=== PATIENT | female | born 1940 | race Caucasian/White ===

== ENCOUNTER 2016-04-07 18:59 | Observation (INO) | payer MEDICARE, OTHER ==
--- NOTE | ~2016-04-07 | EHP ---
ER History and Physical [place] [id number] [facility] [place]. [address] NAME: ORIANA HALL : 41 STATUS : DIS Moira PAT#: [id number] AGE: 75 ADM/REG DATE : 04/07/16 MR#: [id number] REPORT SERV DATE: 04/28/16 DICTATED BY: ISHA VELEZ DATE: 04/28/16 REPORT STATUS : Draft TRANSCRIBED BY: CHINO DATE: 04/28/16 ADDENDUM: PROCEDURE: Cardioversion. Ms. Ruiz remained in SVT in the emergency room with labile blood pressures and so she was prepared for cardioversion, through IV she was given 75 mg of propofol as well as 25 mg of fentanyl. After she had adequate sedation, she received 200 joules per synchronized cardioversion. She had some bradycardia surrounding the event, which she recovered from when she awakened from her sedation. The SVT was resolved, and Ms. Ruiz felt much better. There were no complications. The patient was monitored, and she was then admitted to Cardiology. CMR/MODL Isha Velez M.D. / [id number] CC: Yuko Valentin M.D.
--- NOTE | ~2016-04-07 | HP ---
History And Physical [place] [id number] [facility] [place]. [address] NAME: ORIANA VEGA : 41 STATUS : ADM Moira PAT#: [id number] AGE: 75 ADM/REG DATE : 04/07/16 MR#: [id number] REPORT SERV DATE: 04/08/16 DICTATED BY: DATE: REPORT STATUS : Draft TRANSCRIBED BY: MODL DATE: 04/08/16 DATE OF ADMISSION: 04/07/2016 CHIEF COMPLAINT/REASON FOR CONSULT/ADMISSION: Supraventricular tachycardia. HISTORY OF PRESENT ILLNESS: Ms Oriana Vega is a 75-year-old female, is known to my colleague Dr. Bishop, who generally follows her. The patient noticed elevated heart rates for two days. She also experienced nausea. She did not experience any chest pain or shortness of breath. The patient was found to be in supraventricular tachycardia in the emergency department with associated nausea and underwent DC cardioversion with return to sinus rhythm. The patient was noted to be hypokalemic with a potassium of 3.1 on admission. The patient was stabilized in the emergency department and declined discharge from the emergency department last night. She is feeling well this morning without nausea. PAST MEDICAL HISTORY: 1. History of myocardial infarction and prior PCI. 2. Peripheral vascular disease. 3. Mild aortic stenosis. 4. Occluded right carotid artery. 5. History of cerebrovascular accident. 6. Lip cancer status post surgery. 7. History of breast implants. 8. History of cataract surgery. SOCIAL HISTORY: The patient is a former smoker. She does not use alcohol. She does use four cups of coffee a day. FAMILY HISTORY: Noncontributory. ALLERGIES: 1. PENICILLIN. 2. SULFA. REVIEW OF SYSTEMS: Significant for nausea, but is otherwise negative except for as dictated in the HPI. PHYSICAL EXAMINATION: VITAL SIGNS: Blood pressure ranged between 97 to 127 over 53 to 65, pulse 60 to 64, respirations 18, and oxygen saturation 92% on 2 L nasal cannula. GENERAL: Ms Oriana Vega is a well-groomed 75-year-old female. She is in no distress. Resting comfortably. She appears younger than her stated age. NECK: No jugular venous distention. No carotid bruits. HEART: Regular rate and rhythm. There is a 3/6 systolic murmur that is best appreciated over the right second intercostal space. LUNGS: Clear to auscultation in all silverio. ABDOMEN: Soft and nontender. There was no evidence of renal bruits. I could not palpate History And Physical [address] [place]. [address] NAME: ORIANA VEGA : 41 STATUS : ADM Moira PAT#: [id number] AGE: 75 ADM/REG DATE : 04/07/16 MR#: [id number] REPORT SERV DATE: 04/08/16 DICTATED BY: DATE: REPORT STATUS : Draft TRANSCRIBED BY: MODL DATE: 04/08/16 her aorta. EXTREMITIES: Warm and well-perfused. There is no pitting edema. LABORATORY DATA: Chest x-ray performed on admission for palpitations demonstrated a stable nodule over the mid to right upper portion of her chest, and mild left bibasilar atelectasis. This is similar to a previous chest x-ray performed on 03/30/2016. It measured 1.6 x 1.7 mm. Troponin ranged between 0.05 and 0.06. An EKG performed on admission demonstrated supraventricular tachycardia with a heart rate of 167 beats per minute. There were ST-segment changes noted. Subsequent EKGs demonstrated normal sinus rhythm at 64 beats per minute. There were T-wave inversions in the inferior and the anterolateral leads noted. Potassium on admission was 3.1, is improved at 3.8, magnesium 2, BUN 21, and creatinine 0.87. Hemoglobin 14.1, hematocrit 41, and platelet count is 266. IMPRESSION, REPORT, AND PLAN: 1. Supraventricular tachycardia. 2. Hypokalemia. 3. Hypertension. 4. Coronary artery disease, status post PCI. 5. Mild aortic stenosis. 6. Peripheral vascular disease. 7. Upper right lung nodule. RECOMMENDATIONS: 1. We will arrange for CT scan of the chest to evaluate her lung nodule. 2. We will arrange outpatient followup with her primary care provider as previously scheduled. 3. She has scheduled followup with Dr. Dutta on 04/21/2016 at 11 a.m. 4. We will arrange follow up with her primary wet inspector optical glass Dr. Bishop on 05/18/2016 at 0230 hours. It has been my pleasure to participate in the care of this patient. [facility]/MODL Sarah Kohli M.D. / [id number] CC: Yuko Valentin M.D. James Hoback Jr., M.D. Brian Negus, M.D.
[2016-04-07 18:27] LABS: BASOPHILS 0.3 %; BASOPHILS ABSOLUTE 0.04 10/3/uL (0.0-0.16); EOSINOPHILS 1.2 %; EOSINOPHILS ABSOLUTE 0.14 10/3/uL (0.0-0.53); IMMATURE GRANULOCYTES 0.2 %; IMMATURE GRANULOCYTES ABSOLUTE 0.02 10/3/uL (0.0-0.11); LYMPHOCYTES 26.4 %; LYMPHOCYTES ABSOLUTE 3.16 10/3/uL (0.67-4.30); MEAN CORPUSCULAR HEMOGLOB 31.8 pg (26.0-34.0); MEAN CORPUSCULAR VOLUME 88.6 fL (80-100); MEAN PLATELET VOLUME 10.4 fL (9.2-13.0); MONOCYTES 7.6 %; MONOCYTES ABSOLUTE 0.91 10/3/uL (0.21-1.20); NEUTROPHILS 64.3 %; NEUTROPHILS ABSOLUTE 7.69 10/3/uL (2.02-8.40); RBC DISTRIBUTION WIDTH 12.9 % (12.0-16.0)
[2016-04-07 18:28] LABS: HEMATOCRIT 49.5 % (36.0-48.0); HEMOGLOBIN 17.8 g/dL (12.0-16.0); MANUAL DIFF NO %; PLATELET COUNT 322 10/3/uL (150-400); RED CELL COUNT 5.59 10/6/uL (4.0-5.6)
[2016-04-07 18:43] LABS: BUN (BLOOD UREA NITROGEN) 21 MG/DL (6-23); CALCIUM, SERUM 9.5 MG/DL (8.5-10.4); CHLORIDE, SERUM 98 MMOL/L (96-112); CO2 (CARBON DIOXIDE) 27 MMOL/L (24-34); GFR AFRICAN AMERICAN 57 ML/MIN (>=60); GFR NON AFRICAN AMERICAN 49 ML/MIN (>=60); GLUCOSE, SERUM 104 MG/DL (60-99); POTASSIUM, SERUM 3.1 MMOL/L (3.5-5.3); SODIUM, SERUM 138 MMOL/L (135-148)
[2016-04-07 18:45] LABS: CHEST PAIN PROFILE TAT 0 Hrs 24 Mins; PARTIAL THROMBO TIME 24.4 SEC (22.5-37.2); TROPONIN I 0.06 NG/ML (<0.05)
[~2016-04-07 18:59] MED LIST: CLARIT10 PO; COZAAR100 MG PO; ESTRACE VAGIN42.5 GM V; HYDROCHLOROT25 MG PO; K250 PO; KDUR20 PO; KLOR-CON M2020 MEQ PO; L10 PO; LIPITOR40 PO; LOP100 PO; NITROSTAT0.4 MG SL; NORV5 PO; PLAVIX PO; ZOCOR20 PO; ZOFRAN4 PO
[2016-04-07] MEDS ORDERED: FLONASE NAS (19:15)
[2016-04-07] MEDS ORDERED: K250 PO (19:15)
[2016-04-07] MEDS ORDERED: ATV.5 PO (19:15)
[2016-04-08 00:44] LABS: POTASSIUM, SERUM 3.7 MMOL/L (3.5-5.3)
[2016-04-08 00:49] LABS: TROPONIN I 0.06 NG/ML (<0.05)
[2016-04-08 04:22] LABS: BASOPHILS 0.3 %; BASOPHILS ABSOLUTE 0.04 10/3/uL (0.0-0.16); EOSINOPHILS 2.5 %; EOSINOPHILS ABSOLUTE 0.29 10/3/uL (0.0-0.53); IMMATURE GRANULOCYTES 0.3 %; IMMATURE GRANULOCYTES ABSOLUTE 0.03 10/3/uL (0.0-0.11); LYMPHOCYTES 28.5 %; LYMPHOCYTES ABSOLUTE 3.31 10/3/uL (0.67-4.30); MEAN CORPUS HGB CONC 34.4 g/dL (32.0-36.0); MEAN CORPUSCULAR HEMOGLOB 30.9 pg (26.0-34.0); MEAN CORPUSCULAR VOLUME 89.9 fL (80-100); MEAN PLATELET VOLUME 10.3 fL (9.2-13.0); MONOCYTES 7.1 %; MONOCYTES ABSOLUTE 0.83 10/3/uL (0.21-1.20); NEUTROPHILS 61.3 %; NEUTROPHILS ABSOLUTE 7.13 10/3/uL (2.02-8.40); PLATELET COUNT 266 10/3/uL (150-400); RBC DISTRIBUTION WIDTH 13.1 % (12.0-16.0); RED CELL COUNT 4.56 10/6/uL (4.0-5.6); WHITE BLOOD CELLS 11.6 10/3/uL (4.5-10.5)
[2016-04-08 04:24] LABS: HEMOGLOBIN 14.1 g/dL (12.0-16.0); MANUAL DIFF NO %
[2016-04-08 04:40] LABS: A/G RATIO 0.9 (0.7-1.9); ALBUMIN 2.9 G/DL (3.5-5.0); ALKALINE PHOSPHATASE 44 U/L (45-117); BUN (BLOOD UREA NITROGEN) 21 MG/DL (6-23); CHLORIDE, SERUM 106 MMOL/L (96-112); CO2 (CARBON DIOXIDE) 26 MMOL/L (24-34); CREATININE 0.87 MG/DL (0.55-1.02); GFR AFRICAN AMERICAN 76 ML/MIN (>=60); GFR NON AFRICAN AMERICAN 66 ML/MIN (>=60); GLOBULIN 3.4 G/DL (2.5-4.1); GLUCOSE, SERUM 97 MG/DL (60-99); POTASSIUM, SERUM 3.8 MMOL/L (3.5-5.3); SGOT(AST) 15 U/L (5-40); SGPT(ALT) 19 U/L (5-65); SODIUM, SERUM 141 MMOL/L (135-148); TOTAL PROTEIN 6.3 G/DL (6.0-8.5)
[2016-04-08 04:41] LABS: CALCIUM, SERUM 8.4 MG/DL (8.5-10.4); TOTAL BILIRUBIN 0.2 MG/DL (0-1.2)
[2016-04-08 04:42] LABS: TROPONIN I 0.05 NG/ML (<0.05)
[2016-05-14] MEDS ORDERED: PRILOSEC40 MG PO (14:50)
== END 2016-04-08 14:09 | disposition home or self-care (01) ==
LOC: ER 18:59 → 5NO 21:59
PROVIDERS: Specialist
PROC: 5A2204Z Restoration of Cardiac Rhythm, Single (ICD-10-PCS; principal; 2016-04-07)
DX: I47.1 Supraventricular tachycardia (principal); I25.2 Old myocardial infarction; I25.10 Atherosclerotic heart disease of native coronary artery without angina pectoris; L40.9 Psoriasis, unspecified; I10 Essential (primary) hypertension; I35.0 Nonrheumatic aortic (valve) stenosis; M19.90 Unspecified osteoarthritis, unspecified site; I73.9 Peripheral vascular disease, unspecified; Z87.891 Personal history of nicotine dependence; Z88.0 Allergy status to penicillin; Z88.2 Allergy status to sulfonamides; Z79.899 Other long term (current) drug therapy; Z79.02 Long term (current) use of antithrombotics/antiplatelets; E78.2 Mixed hyperlipidemia; Z98.890 Other specified postprocedural states
CPT/HCPCS: 71010; 71250; 80048; 80053; 83735; 83880; 84132; 84484; 85025; 85610; 85730; 93005; 96374; 96375; 99291; A9270-GY; G0378; J0153; J1800; J2405; J3010

== ENCOUNTER 2016-05-21 09:23 | Inpatient (IN) | payer OTHER ==
--- NOTE | ~2016-05-21 | DS ---
Discharge Summary [facility] [address] [facility] [place]. [address] NAME: ORIANA HALL : 41 STATUS : DIS IN PAT#: [id number] AGE: 75 ADM/REG DATE : 05/21/16 MR#: [id number] REPORT SERV DATE: 05/24/16 DICTATED BY: MIGUEL TSANG DATE: 05/23/16 REPORT STATUS : Draft TRANSCRIBED BY: CHINO DATE: 05/23/16 ADMISSION DATE: 05/21/2016 DISCHARGE DATE: 05/22/2016 The patient was discharged earlier than expected date due to unexpected early recovery. CONDITION ON DISCHARGE: Stable. DISPOSITION: Discharged to home. 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 DIAGNOSES ON DISCHARGE: 1. Hypoxemia secondary to chronic obstructive pulmonary disease and tobacco abuse - the patient will need supplemental oxygen and she is being sent home on 2 L of oxygen per nasal cannula for continuous use. 2. Chest pain post bronchoscopy - resolved. 3. Atypical chest pain and nonspecific elevation in troponin I which has resolved and is not related to acute coronary syndrome at this time. The patient has been evaluated by Cardiology and this has been deemed atypical and not related to any acute coronary syndrome right now. 4. Chronic diagnoses in this patient include chronic obstructive pulmonary disease. 5. Right upper lobe lung nodule for which the patient had to undergo bronchoscopy and biopsy this time and preliminary biopsy results have come back positive for adenocarcinoma for which the patient will need resection. The patient has been evaluated by Pulmonology and appointments have been made with Oncology and also CT Surgery in the near future, so this can be taken care of. Morro Otto, the physician pediatric physical therapy assistant/nurse practitioner, Pulmonology has evaluated the patient and helped out with scheduling follow up appointments for this patient. BRIEF HOSPITAL COURSE: The patient is a pleasant 75-year-old female, who was admitted directly as a direct admit after she developed some chest pain and hypoxemia after bronchoscopy. The patient was admitted with supplemental oxygen and given symptomatic and supportive care, and her troponin I was followed serially. Her troponin I came down eventually and her chest pain also completely resolved. She was evaluated by Cardiology and it was deemed that her chest pain was atypical and not related to acute coronary syndrome at this time. The patient is a known smoker and has COPD and now has developed hypoxemia probably secondary to COPD. Hence, the patient is being sent home on home oxygen at 2 L/minute per nasal cannula. The patient's right upper lobe lung nodule biopsy after bronchoscopy has come back preliminarily positive for adenocarcinoma. The patient will need a resection of this in the near future and arrangements for this have already been made. The patient Discharge Summary [place] [address] [place]. [address] NAME: ORIANA HALL : 41 STATUS : DIS IN PAT#: [id number] AGE: 75 ADM/REG DATE : 05/21/16 MR#: [id number] REPORT SERV DATE: 05/24/16 DICTATED BY: MIGUEL TSANG DATE: 05/23/16 REPORT STATUS : Draft TRANSCRIBED BY: CHINO DATE: 05/23/16 states that she feels a lot better. Her chest pain has resolved and she wishes to go home on 05/22/2016 on home oxygen and this will be accomplished. The most recent labs that I have on this patient include the following. The patient's CBC on the day of discharge is completely normal. The patient's comprehensive metabolic profile on the day of discharge is also completely normal with normal electrolytes, normal BUN and creatinine, albumin is 2.8 which is slightly lower. Lipase is normal. CPK is normal. CK-MB is normal. Troponin I has come down to near normal at 0.05 from being elevated at 0.08. LFTs are completely normal. Her portable chest x-ray shows decreased lung volumes with right basilar atelectasis. However, otherwise no other acute cardiopulmonary disease. Her ABGs on 05/22/2016 shows pH of 7.4, PO2 of 73, pCO2 of 40, and oxygen saturation 94.8 on 2 L of oxygen. Hence, the patient is being sent home on supplemental oxygen. Her procalcitonin has come back, less than 0.05, suggesting that she has no infection or pneumonia at this time. Consults obtained during this hospitalization include Pulmonary and Cardiology consult. Her brain natriuretic peptide was slightly elevated at 316.6 at this time. However, we do not believe that she is in any florid heart failure now. HOME MEDICATIONS: That she is being sent home on include the followin. Amlodipine 5 mg p.o. b.i.d. 2. Lipitor 40 mg at bedtime. 3. Plavix 75 mg p.o. at bedtime. 4. Lopressor 50 mg p.o. b.i.d. 5. Potassium 20 mEq once a day. 6. Claritin 10 mg once a day. 7. Ativan 0.5 mg p.o. once a day as needed for anxiety. 8. Prilosec 40 mg once a day. 9. Percocet 5/325 one p.o. t.i.d. p.r.n. for chest pain. 10.Spiriva Respimat two puffs once a day. 11.ProAir HFA two puffs every four hours p.r.n. The patient also will continue to take Nitrostat 0.4 mg sublingual tablets p.r.n. for chest pain as directed. All these essentially are her home medications which have all been resumed. Hence, the patient is being sent home in stable condition with advice to follow up with all the above physicians, and I have spent about 40 minutes in coordinating discharge care of this patient including [id number] encounter and summarizing this discharge. TRE/CHINO Miguel Tsang M.D. / [id number] Discharge Summary [address] [address] NAME: ORIANA HALL : 41 STATUS : DIS IN PAT#: [id number] AGE: 75 ADM/REG DATE : 05/21/16 MR#: [id number] REPORT SERV DATE: 05/24/16 DICTATED BY: MIGUEL TSANG DATE: 05/23/16 REPORT STATUS : Draft TRANSCRIBED BY: MODL DATE: 05/23/16 CC: Yuko Canela M.D.
--- NOTE | ~2016-05-21 | CN ---
Consultation Report [facility] [address] [place]. [address] NAME: ORIANA HALL : 41 STATUS : ADM IN PAT#: [id number] AGE: 75 ADM/REG DATE : 05/21/16 MR#: [id number] REPORT SERV DATE: 05/22/16 DICTATED BY: SOURAV KAPADIA DATE: 05/21/16 REPORT STATUS : Draft TRANSCRIBED BY: MODSammy DATE: 05/21/16 CARDIOLOGY CONSULTATION DATE OF CONSULTATION: INDICATION: Chest pain, elevated troponins. HISTORY: The patient is a 75-year-old white female, usually followed by Dr. Bishop with a moderately complex cardiac history. She had undergone a bronchoscopy by Dr. Devi for evaluation of a lung mass, pathology pending. Prior to the procedure, she was taken off her Plavix for several days. Upon awakening, she noted some substernal chest discomfort. Laboratory studies showed a troponin of 0.07. We are asked to evaluate her. There are no acute changes on her electrocardiogram. Presently, she is asymptomatic. CURRENT HOME MEDICATIONS: Amlodipine 5 b.i.d., atorvastatin 40 a day, cephalexin 250 at h.s., clopidogrel 75 at h.s. presently discontinued, loratadine 10 per day, lorazepam 0.5 p.r.n., metoprolol tartrate 50 b.i.d., nitroglycerin 0.4 p.r.n., omeprazole 40 a day, potassium 20 q.a.m. ALLERGIES OR INTOLERANCES: Sulfa-containing drugs, penicillin G, and promethazine. SOCIAL HISTORY: The patient is an ex cigarette smoker; however, has a fairly heavy previous tobacco use. Negative for alcohol use. She drinks four caffeinated beverages per day. FAMILY HISTORY: Negative for coronary artery disease at young age. PAST MEDICAL HISTORY/REVIEW OF SYSTEMS: She has had angioplasties in 1996 and 1997. She has had previous non-Q-wave SD. She has a history of hypertension and dyslipidemia. She has peripheral vascular disease and has had previous intervention by Dr. Dutta. She has nonrheumatic aortic valve stenosis classified as moderate. Her recent echocardiogram showed a mean gradient of 21 mmHg with a calculated NARCISO of 0.86 centimeter squared. She has chronic back discomfort. PHYSICAL EXAMINATION: GENERAL: A 75-year-old white female. VITAL SIGNS: Blood pressure 120/62, pulse 70 and regular, respirations 18. SKIN: No xanthelasmas. HEENT: She is normocephalic. There is no pallor. Sclerae are white. There are nasal cannulas in place. NECK: There are bilateral transmitted bruits in the carotids. JVD is not elevated. CHEST: There are sparse crackles at the right base. There is moderate kyphosis. CARDIAC: S1 normal. S2 is physiologic. There is a 2/6 systolic ejection murmur transmitted Consultation Report [place] [id number] [place]. [address] NAME: ORIANA HALL : 41 STATUS : ADM IN [facility]#: [id number] AGE: 75 ADM/REG DATE : 05/21/16 MR#: [id number] REPORT SERV DATE: 05/22/16 DICTATED BY: SOURAV KAPADIA DATE: 05/21/16 REPORT STATUS : Draft TRANSCRIBED BY: CHINO DATE: 05/21/16 to the base. ABDOMEN: Soft. EXTREMITIES: Without edema. LABORATORY DATA: Troponin as mentioned is 0.07. CPK 39. White count 9.3, hemoglobin 14.3, BUN 9, creatinine 0.74. IMPRESSION: Somewhat atypical chest discomfort with minimal troponin elevation. Doubt acute coronary syndrome. Agree with monitoring enzymes. We will continue to follow with you. MAINOR/CHINO Sourav Kapadia M.D. / [id number] CC: Yuko Canela M.D. [facility]
--- NOTE | ~2016-05-21 | CN ---
Consultation Report [facility] [address] [place]. [address] NAME: ORIANA VEGA : 41 STATUS : ADM IN PAT#: [id number] AGE: 75 ADM/REG DATE : 05/21/16 MR#: [id number] REPORT SERV DATE: 05/21/16 DICTATED BY: OZZIE NUNEZ DATE: 05/21/16 REPORT STATUS : Draft TRANSCRIBED BY: MODL DATE: 05/21/16 CONSULTATION DATE OF CONSULTATION: 05/21/[address] Sarah Kohli: Thank you for requesting my opinion regarding evaluation and management of Ms. Oriana Vega's right upper lobe lung nodule. Ms. Vega is a pleasant 75-year-old female with a significant past medical history of prior myocardial infarction status post PCI, peripheral vascular disease, mild aortic stenosis, occluded right carotid artery, and history of cerebrovascular accident, history of lip cancer status post surgery, and bilateral breast implantation, who presents to [facility] for formal evaluation of an 18 mm spiculated right upper lobe lung nodule. Ms. Vega states that she had no significant shortness of breath at baseline, but had a history of rapid heart beats and recent nausea and was evaluated for supraventricular tachycardia and underwent DC cardioversion with return to sinus rhythm. The patient underwent a chest x-ray at that time, that demonstrated a nodule over the mid to the right upper portion of the lung and subsequent CT scan of the chest on 04/08/2016, demonstrated a spiculated lung nodule in the right upper lobe likely primary lung cancer. I circumscribed left upper lobe lung nodule which is nonspecific, linear atelectasis and/or fibrosis at the bases of both lungs, left greater than right, minimal pericardial thickening and fluid, gastric atherosclerosis, and coronary atherosclerosis and hiatal hernia. The patient states that she has typical exertional shortness of breath well localized to the chest, nonradiating with no significant alleviating or exacerbating factors. PAST MEDICAL HISTORY: 1. Myocardial infarction status post PCI. 2. PVD. 3. Mild aortic stenosis. 4. Occluded right carotid artery. 5. History of CVA. 6. Lip cancer, status post surgery. PAST SURGICAL HISTORY: 1. Breast implantation. 2. Cataract surgery. 3. As above. SOCIAL HISTORY: The patient is a former smoker. She denies any significant alcohol or illicit drug abuse. FAMILY HISTORY: Noncontributory. Consultation Report [address] [place]. [address] NAME: ORIANA VEGA : 41 STATUS : ADM IN PAT#: [id number] AGE: 75 ADM/REG DATE : 05/21/16 MR#: [id number] REPORT SERV DATE: 05/21/16 DICTATED BY: OZZIE NUNEZ DATE: 05/21/16 REPORT STATUS : Draft TRANSCRIBED BY: CHINO DATE: 05/21/16 ALLERGIES: PENICILLIN AND SULFA. HOME MEDICATIONS: Reviewed and located in the paper chart. REVIEW OF SYSTEMS: A 14-point review of systems was completed. Pertinent positives and negatives are listed above. PHYSICAL EXAMINATION: VITAL SIGNS: Reviewed and located in the paper chart. GENERAL: No acute distress. Able to communicate in full paragraphs at a time. HEENT: Normocephalic and atraumatic. Pupils are equal, round, and reactive to light and accommodation. Posterior oropharynx is clear. NECK: No JVD. No LAD. Trachea midline. CARDIOVASCULAR: Regular rate and rhythm. S1 and S2 present. 3/6 systolic murmur. LUNGS: Clear to auscultation bilaterally. ABDOMEN: Nontender, nondistended. Soft. Positive bowel sounds. EXTREMITIES: No clubbing, cyanosis, or edema. SKIN: No new rashes, lesions, or ulcers. PSYCHIATRIC: Alert and oriented x3. Appropriate mood and affect. Appropriate insight and judgment. NEUROLOGICAL: 5/5 strength in upper and lower extremities. Cranial nerves 2 through 12 intact. Gait not tested. DTRs not performed. DIAGNOSTIC STUDIES: 1. Chest x-ray demonstrated a stable nodule in the right upper lobe portion of the lung. 2. CT scan of the chest on 04/08/2016, was personally reviewed by me and I agree with the following interpretation, spiculated right upper lobe 18 mm lung nodule. 3. Indeterminate left upper lobe lung nodule, which is nonspecific, which may represent metastases. 4. Linear atelectasis and/or fibrosis. 5. Minimal pericardial thickening and fluid, gastric atherosclerosis including coronary arteries. 6. Hiatal hernia. 7. Bilateral breast implantation. ASSESSMENT AND PLAN: Ms. Vega is an extremely pleasant 75-year-old female with a significant past medical history of tobacco abuse, coronary artery disease status post PCI, and supraventricular tachycardia status post recent DC cardioversion, who presents to [facility] for formal evaluation of a right upper lobe spiculated lung nodule. The clinical and radiographic presentation is most concerning for primary bronchogenic carcinoma. Other alternate etiologies include an inflammatory process. According to the solitary [facility] pulmonary nodule calculator, the pretest probability of malignancy is 91%. Consultation Report [facility] [address] [place]. [address] NAME: ORIANA VEGA : 41 STATUS : ADM IN PAT#: [id number] AGE: 75 ADM/REG DATE : 05/21/16 MR#: [id number] REPORT SERV DATE: 05/21/16 DICTATED BY: OZZIE NUNEZ DATE: 05/21/16 REPORT STATUS : Draft TRANSCRIBED BY: CHINO DATE: 05/21/16 We discussed in detail potential options including CT-guided needle biopsy, thoracic surgical biopsy, EBUS and navigation bronchoscopy. After careful discussion of the risks, benefits, and alternatives to each of these procedures, and we agreed to proceed with EBUS and navigation bronchoscopy. The patient is aware that the procedure is associated with potential life-threatening risks, including lung collapse, respiratory failure, and even . RECOMMENDATIONS: A summary of my recommendations are as follows: 1. Proceed with EBUS and navigation bronchoscopy. 2. Further recommendations pending postoperative results. Thank you for allowing me to participate in Ms. Vega's care. Sincerely, HELEN/CHINO Ozzie Nunez M.D. / [id number] CC: Yuko Canela M.D.
--- NOTE | ~2016-05-21 | EGD ---
EGD REPORT [facility] [address] [id number] NAME: ORIANA MUÑOZ : 42 STATUS : REG [facility]#: [id number] AGE: 75 ADM/REG DATE : 05/21/16 MR#: [id number] REPORT SERV DATE: 05/21/16 DICTATED BY: SUKHI NUNEZ DATE: 05/21/16 REPORT STATUS : Draft TRANSCRIBED BY: [facility] DATE: 05/21/16 Pulmonology Patient Name: Oriana Muñoz Procedure Date: 05/21/2016 11:23 AM Date of : 1940 Attending MD: YOSELYN NUNEZ MD Procedure Date No Time: 05/21/2016 Procedure: EBUS/NORMA BRONCHOSCOPY Indications: RUL lung nodule, tobacco abuse Providers: YOSELYN NUNEZ MD Referring MD: Sarah Kohli Medicines: Lidocaine 2% 20 mL Complications: No immediate complications Procedure: - ASA Grade Assessment: III - A patient with severe systemic disease. - A History and Physical has been performed. Patient meds and allergies have been reviewed. The risks and benefits of the procedure and the sedation options and risks were discussed with the patient. All questions were answered and informed consent was obtained. Patient identification and proposed procedure were verified prior to the procedure by the physician and the nurse in the pre-procedure area in the procedure room. Mental Status Examination: alert and oriented. Respiratory Examination: clear to auscultation. CV Examination: normal and RRR, no murmurs, no S3 or S4. ASA Grade Assessment: IV - A patient with severe systemic disease that is a constant threat to life. After reviewing the risks and benefits, the patient was deemed in satisfactory condition to undergo the procedure. The anesthesia plan was to use general anesthesia. Immediately prior to administration of medications, the patient was re-assessed for adequacy to receive sedatives. The heart rate, respiratory rate, oxygen saturations, blood pressure, adequacy of pulmonary ventilation, and response to care were monitored throughout the procedure. The physical status of the patient was re-assessed after the procedure. the BF [id number] was introduced through the mouth, via the endotracheal tube (the patient was intubated for the procedure) and advanced to the tracheobronchial tree. the Bronchoscope was introduced through the mouth, via the endotracheal tube (the patient was intubated for the procedure) and advanced to the tracheobronchial tree. Findings: EGD REPORT [address] [place]. [address] NAME: ORIANA MUÑOZ : 42 STATUS : REG [facility] PAT#: [id number] AGE: 75 ADM/REG DATE : 05/21/16 MR#: [id number] REPORT SERV DATE: 05/21/16 DICTATED BY: SUKHI NUNEZ DATE: 05/21/16 REPORT STATUS : Draft TRANSCRIBED BY: [employer] [facility] DATE: 05/21/16 The endotracheal tube is in good position. The visualized portion of the trachea is of normal caliber. The gila is sharp. The tracheobronchial tree was examined to at least the first subsegmental level. Bronchial mucosa and anatomy are normal; there are no endobronchial lesions, and no secretions. EBUS TBNA of lymph node level 11L x 4 passes for cytology EBUS TBNA of lymph node level 4L x 4 passes for cytology EBUS TBNA of lymph node level 7 x 4 passes for cytology EBUS TBNA of lymph node level 4R x 4 passes for cytology EBUS TBNA of lymph node level 11R x 4 passes for cytology Using SuperDimension Edge catheter 180, peripheral probe EBUS 17s, and fluoroscopy, I performed the following biopsies: RUL lung nodule transbronchial needle aspirates x 4 passes for cytology RUL lung nodule transbronchial brush biopsy x 1 pass for cytology RUL lung nodule transbronchial forcep biopsies x 8 passes for histopathology Bronchoalveolar lavage was performed in the right upper lobe of the lung and sent for routine cytology. 180 mL of fluid were instilled. 30 mL were returned. The return was blood-tinged and cellular. 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 Recommendation: - Await test results. - Chest X-ray. - Complete pulmonary function tests. - PET scan. - MRI of the brain with and without contrast Attending Participation: I personally performed the entire procedure. YOSELYN NUNEZ MD 05/21/2016 2:43 PM This report has been signed electronically. Number of Addenda: 0 Note Initiated On: 05/21/2016 11:23 AM [address] [id number]
--- NOTE | ~2016-05-21 | HP ---
History And Physical [place] [id number] [facility] [place]. [address] NAME: ORIANA VEGA : 42 STATUS : ADM IN [facility]#: [id number] AGE: 75 ADM/REG DATE : 05/21/16 MR#: [id number] REPORT SERV DATE: 05/22/16 DICTATED BY: MIGUEL TSANG DATE: 05/21/16 REPORT STATUS : Draft TRANSCRIBED BY: CHINO DATE: 05/21/16 DATE OF ADMISSION: 05/21/2016 HISTORY OF PRESENT ILLNESS: Ms. Oriana Vega is a 75-year-old female patient, who is coming in as a direct admit from Dr. Devi. The patient underwent a bronchoscopy today for a lung nodule that is suspicious for malignancy and after the procedure developed chest pain and hypoxia and the reason for admission is chest pain, hypoxia, and mildly elevated troponin I. The patient arrived from bronchoscopy hold up to [address] [place] [address], and I examined the patient at bedside. At this time, the patient continues to have mild-to- moderate chest pain and she points actually to the left lateral area of her chest or flank area rather than the left side of the chest itself or precordium. She states that the pain is dull aching type and does request something for it. The patient also says that she did not have the chest pain until she underwent the bronchoscopy itself. Other than the pain, the patient has no other symptoms whatsoever right now. REVIEW OF SYSTEMS: Negative for headaches, blurry vision, trouble swallowing, shortness of breath, cough, fever, nausea, vomiting, abdominal pain, diarrhea, dysuria, hematuria, etc. The pain itself; according to the patient, she says that it was present in the anterior chest and was going all the way to the back but now has shifted completely to the left side of the chest and back of the left chest. PAST MEDICAL HISTORY: Significant for COPD, recently diagnosed lung nodule suspicious for malignancy for which patient underwent bronchoscopy today by Dr. Devi; coronary artery disease, status post stenting. The patient's vehicle refinisher is Dr. Bishop. There is also a history of questionable SVT in the past. The patient also has a history of lip cancer for which she has had part of her upper lip resected. Other than these, there is no other significant past medical history. SOCIAL HISTORY: The patient smokes about half a pack a day now. She denies any significant alcohol use, denies any illicit drug use. The patient is and has a daughter and a granddaughter. FAMILY HISTORY: Positive for heart disease in both parents. ALLERGIES: THE PATIENT IS ALLERGIC TO SULFA, PROMETHAZINE, AND ALSO PENICILLIN G. HOME MEDICATIONS: Her home medications include amlodipine 5 mg p.o. b.i.d.; Lipitor 40 mg p.o. at bedtime; Clopidogrel 75 mg p.o. at bedtime; Lopressor 150 mg twice a day; potassium chloride 20 mEq once a day; nitroglycerin 0.4 mg sublingually p.r.n. for chest pain; Claritin 10 mg once a day; Ativan 0.5 mg p.o. daily as needed for anxiety; Prilosec 40 mg every day; and the patient is on Keflex 250 mg p.o. at bedtime for prevention of UTI. History And Physical [address] 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 PHYSICAL EXAMINATION: GENERAL: On examination, the patient is alert, oriented, and does not seem to be in any acute distress at this time. She does complain of moderate chest pain and requests something for the pain relief. VITAL SIGNS: Show that her blood pressure is 126/59, pulse is 79 per minute, and oxygen saturation is 92% on 2 L of oxygen per nasal cannula. The patient is afebrile. HEENT: Skin and mucous membranes appear very dry at this time. Unremarkable. There is no facial droop. The patient has had part of her upper lip resected for the squamous cell cancer as mentioned. NECK: On examination of the neck, there is no JVD, thyromegaly, or lymphadenopathy. CARDIOVASCULAR SYSTEM: S1, S2 is appreciated. Soft systolic murmur is noted. RESPIRATORY SYSTEM: Limited lung expansion and poor air entry noted at the lung bases. I could hear a few crackles on the right side of the lung base. Otherwise, lungs are clear. ABDOMEN: Soft, nontender, nondistended. Bowel sounds appreciated. No organomegaly noted. No masses noted. EXTREMITIES: There is no pedal edema. Pedal pulses are well felt. NEUROLOGICAL: No deficits. MUSCULOSKELETAL: No swelling, warmth, or redness in any of the major joints. PSYCHIATRIC EXAM: Normal as of now but the patient does have history of mild generalized anxiety. LABORATORY DATA: Labs that I have on this patient include a CBC that shows WBC count of 9.3, essentially all normal. INR 1.1. Electrolyte profile is all within normal including BUN and creatinine. Portable chest x-ray that was done today shows no pneumothorax following the bronchoscopic procedure. Bronchoscopy itself; the patient underwent bronchoscopy for right upper lobe lung nodule and the report is suspicious for malignancy at this time. The patient's CPK and CK-MB are normal but troponin I is mildly elevated at 0.07. ASSESSMENT: 1. Chest pain, mild hypoxia and mildly elevated troponin post bronchoscopy - admit the patient and give her supplemental oxygen, IV fluids as she appears very dry at this time. I will give the patient pain relief and give her symptomatic and supportive care at this time. Will follow serial troponins at this time. However, as the patient is requesting her vehicle refinisher, Dr. Bishop's consult, we will go ahead and consult Dr. Bishop or covering vehicle refinisher at this time per patient's request. 2. Dr. Devi, our covering sales product manager, will continue to see her as of tomorrow. I will follow the patient myself. History And Physical [address] [place]. [address] NAME: ORIANA VEGA : 42 STATUS : ADM IN [facility]#: [id number] AGE: 75 ADM/REG DATE : 05/21/16 MR#: [id number] REPORT SERV DATE: 05/22/16 DICTATED BY: MIGUEL TSANG DATE: 05/21/16 REPORT STATUS : Draft TRANSCRIBED BY: [facility]INO DATE: 05/21/16 RRA/MODL Miguel Tsang M.D. / [id number] CC: Yuko Canela M.D.
[~2016-05-21 09:23] MED LIST changes: +ATV.5 PO; +FLONASE NAS; +PRILOSEC40 MG PO
[2016-05-21 09:52] LABS: BASOPHILS 0.3 %; BASOPHILS ABSOLUTE 0.03 10/3/uL (0.0-0.16); EOSINOPHILS 6.4 %; EOSINOPHILS ABSOLUTE 0.59 10/3/uL (0.0-0.53); HEMATOCRIT 42.4 % (36.0-48.0); HEMOGLOBIN 14.3 g/dL (12.0-16.0); IMMATURE GRANULOCYTES 0.2 %; IMMATURE GRANULOCYTES ABSOLUTE 0.02 10/3/uL (0.0-0.11); LYMPHOCYTES 23.6 %; LYMPHOCYTES ABSOLUTE 2.19 10/3/uL (0.67-4.30); MEAN CORPUS HGB CONC 33.7 g/dL (32.0-36.0); MEAN CORPUSCULAR HEMOGLOB 30.1 pg (26.0-34.0); MEAN CORPUSCULAR VOLUME 89.3 fL (80-100); MEAN PLATELET VOLUME 9.9 fL (9.2-13.0); MONOCYTES 7.2 %; MONOCYTES ABSOLUTE 0.67 10/3/uL (0.21-1.20); NEUTROPHILS 62.3 %; NEUTROPHILS ABSOLUTE 5.77 10/3/uL (2.02-8.40); PLATELET COUNT 233 10/3/uL (150-400); RBC DISTRIBUTION WIDTH 13.9 % (12.0-16.0); RED CELL COUNT 4.75 10/6/uL (4.0-5.6); WHITE BLOOD CELLS 9.3 10/3/uL (4.5-10.5)
[2016-05-21 09:53] LABS: MANUAL DIFF NO %
[2016-05-21 09:57] LABS: INTERNATIONAL NORMAL RATI 1.1 UNITS (-); PARTIAL THROMBO TIME 26.4 SEC (22.5-37.2); PROTIME (NOT ORD) 14.2 SEC (12.0-14.5)
[2016-05-21 10:08] LABS: BUN (BLOOD UREA NITROGEN) 9 MG/DL (6-23); CALCIUM, SERUM 9.2 MG/DL (8.5-10.4); CHLORIDE, SERUM 106 MMOL/L (96-112); CO2 (CARBON DIOXIDE) 27 MMOL/L (24-34); CREATININE 0.74 MG/DL (0.55-1.02); GFR AFRICAN AMERICAN 92 ML/MIN (>=60); GFR NON AFRICAN AMERICAN 80 ML/MIN (>=60); GLUCOSE, SERUM 105 MG/DL (60-99); POTASSIUM, SERUM 3.7 MMOL/L (3.5-5.3); SODIUM, SERUM 142 MMOL/L (135-148)
[2016-05-21 16:44] LABS: CPK 39 U/L (0-200)
[2016-05-21 16:45] LABS: CK-MB 1.4 NG/ML
[2016-05-21 16:56] LABS: TROPONIN I 0.07 NG/ML (<0.05)
[2016-05-21 20:28] LABS: TROPONIN I 0.08 NG/ML (<0.05)
[2016-05-21 20:48] LABS: PROCALCITONIN <0.05 ng/mL (<0.5)
[2016-05-22 04:32] LABS: ALLENS TEST Pos; DEVICE NC; HCO3 (ACTUAL BICARBONATE) 25.5 MEQ/L (23-27); HEMOBLOGIN CONTENT 12.9 G/DL (12-16); INSTRUMENT SERIAL # 35151; METHEMOGLOBIN 0.6 % (0-3); O2 CONTENT 17.1 VOL% (18-24); OPERATOR ID 31061; PCO2 (CO2 TENSION) 40 MMHG (35-45); PO2 (O2 TENSION) 73 MMHG (79-93); SAMPLE Arterial; pH 7.42 (7.37-7.43)
[2016-05-22 05:12] LABS: BASOPHILS 0.1 %; BASOPHILS ABSOLUTE 0.01 10/3/uL (0.0-0.16); EOSINOPHILS 0 %; HEMOGLOBIN 12.3 g/dL (12.0-16.0); IMMATURE GRANULOCYTES 0.1 %; IMMATURE GRANULOCYTES ABSOLUTE 0.01 10/3/uL (0.0-0.11); LYMPHOCYTES 12.4 %; MEAN CORPUS HGB CONC 33.4 g/dL (32.0-36.0); MEAN CORPUSCULAR HEMOGLOB 30.1 pg (26.0-34.0); MEAN PLATELET VOLUME 10.4 fL (9.2-13.0); MONOCYTES 3.7 %; NEUTROPHILS 83.7 %; NEUTROPHILS ABSOLUTE 6.72 10/3/uL (2.02-8.40); PLATELET COUNT 207 10/3/uL (150-400); RBC DISTRIBUTION WIDTH 13.5 % (12.0-16.0); RED CELL COUNT 4.09 10/6/uL (4.0-5.6)
[2016-05-22 05:15] LABS: HEMATOCRIT 36.8 % (36.0-48.0); MANUAL DIFF NO %
[2016-05-22 05:45] LABS: ALKALINE PHOSPHATASE 71 U/L (45-117); BUN (BLOOD UREA NITROGEN) 10 MG/DL (6-23); CALCIUM, SERUM 8.5 MG/DL (8.5-10.4); CHLORIDE, SERUM 102 MMOL/L (96-112); CO2 (CARBON DIOXIDE) 28 MMOL/L (24-34); CPK 34 U/L (0-200); CREATININE 0.62 MG/DL (0.55-1.02); GFR AFRICAN AMERICAN 103 ML/MIN (>=60); GFR NON AFRICAN AMERICAN 89 ML/MIN (>=60); GLUCOSE, SERUM 122 MG/DL (60-99); POTASSIUM, SERUM 3.9 MMOL/L (3.5-5.3); SGOT(AST) 16 U/L (5-40); SGPT(ALT) 21 U/L (5-65); SODIUM, SERUM 139 MMOL/L (135-148); TOTAL BILIRUBIN 0.5 MG/DL (0-1.2)
[2016-05-22 05:50] LABS: A/G RATIO 0.9 (0.7-1.9); ALBUMIN 2.8 G/DL (3.5-5.0); CK-MB 1.3 NG/ML; GLOBULIN 3.1 G/DL (2.5-4.1); TOTAL PROTEIN 5.9 G/DL (6.0-8.5); TROPONIN I 0.05 NG/ML (<0.05)
[2016-05-22 09:17] LABS: CK-MB 1.3 NG/ML; CPK 37 U/L (0-200)
[2016-05-22] MEDS ORDERED: PCET PO (13:36)
[2016-05-22] MEDS ORDERED: SPIRIVA RESPIMAT INH (13:58)
[2016-05-22] MEDS ORDERED: PROAIR HFA INH (14:01)
== END 2016-05-22 15:39 | disposition home or self-care (01) | DRG 167 ==
LOC: DMU 09:23 → 6NO 17:51
PROVIDERS: Anesthesiology; Internal Medicine
PROC: 07B74ZX Excision of Thorax Lymphatic, Percutaneous Endoscopic Approach, Diagnostic (ICD-10-PCS; principal; 2016-05-21 11:30)
PROC: 0BBC8ZX Excision of Right Upper Lung Lobe, Via Natural or Artificial Opening Endoscopic, Diagnostic (ICD-10-PCS; 2016-05-21 11:30)
PROC: 0BBC8ZX Excision of Right Upper Lung Lobe, Via Natural or Artificial Opening Endoscopic, Diagnostic (ICD-10-PCS; 2016-05-21 11:30)
PROC: 0B948ZX Drainage of Right Upper Lobe Bronchus, Via Natural or Artificial Opening Endoscopic, Diagnostic (ICD-10-PCS; 2016-05-21 11:30)
DX: R09.02 Hypoxemia (principal); C34.11 Malignant neoplasm of upper lobe, right bronchus or lung; J44.9 Chronic obstructive pulmonary disease, unspecified; I65.21 Occlusion and stenosis of right carotid artery; R07.89 Other chest pain; I25.10 Atherosclerotic heart disease of native coronary artery without angina pectoris; F17.210 Nicotine dependence, cigarettes, uncomplicated; I25.2 Old myocardial infarction; I73.9 Peripheral vascular disease, unspecified; I35.0 Nonrheumatic aortic (valve) stenosis; Z95.5 Presence of coronary angioplasty implant and graft; Z86.73 Personal history of transient ischemic attack (TIA), and cerebral infarction without residual deficits; Z82.49 Family history of ischemic heart disease and other diseases of the circulatory system; Z79.02 Long term (current) use of antithrombotics/antiplatelets; Z85.828 Personal history of other malignant neoplasm of skin; Z88.0 Allergy status to penicillin; Z88.2 Allergy status to sulfonamides
CPT/HCPCS: 71010; 80048; 80053; 82550; 82553; 82805; 83690; 83880; 84145; 84484; 85025; 85610; 85730; 88112; 88172; 88173; 88305; 88333; 93005; 94640; A9270-GY; C1725; C1769; G0463; J2250; J2405; J2710; J3010

== ENCOUNTER 2016-05-25 06:44 | Inpatient (IN) | payer OTHER ==
--- NOTE | ~2016-05-25 | CN ---
Consultation Report [facility] [address] [place]. [address] NAME: ORIANA VEGA : 42 STATUS : ADM [facility] PAT#: [id number] AGE: 75 ADM/REG DATE : 05/25/16 MR#: [id number] REPORT SERV DATE: 05/25/16 DICTATED BY: AURA FIELD DATE: 05/25/16 REPORT STATUS : Draft TRANSCRIBED BY: MODL DATE: 05/25/16 ELECTROPHYSIOLOGY CONSULTATION DATE OF CONSULTATION: 05/25/2016 REASON: Symptomatic narrow complex tachycardia. HISTORY OF PRESENT ILLNESS: Ms. Vega is a pleasant 75-year-old woman, recently diagnosed with adeno CA possibly stage I. Staging is still being performed. She has been having problems with narrow complex tachycardias. Heart rate somewhat variable. This was thought to possibly be SVT, and she has not been treated with anything but metoprolol. She again comes in with a narrow complex tachycardia rate of approximately 160 beats per minute. She was treated with IV Cardizem, appear to have had converted to sinus rhythm. She was seen by Dr. Rizzo earlier, who had asked me to see her from electrophysiology standpoint due to the fact that she has had number of admissions with this narrow complex tachycardia in the last several weeks. PAST MEDICAL HISTORY: 1. Notable for a long-standing history of tobacco abuse and COPD. She is on oxygen at home. 2. Recent diagnosis of right upper lobe adeno CA. Staging is ongoing. 3. History of tachypalpitations and narrow complex tachycardia. 4. History of hypertension. 5. History of hyperlipidemia. HOME MEDICATIONS: Include albuterol, amlodipine, atorvastatin, Plavix, lorazepam, metoprolol 50 mg p.o. b.i.d., Prilosec, potassium, Spiriva. FAMILY HISTORY: Noncontributory. Negative for premature coronary artery disease. SOCIAL HISTORY: Notable for tobacco abuse. Negative alcohol. Negative illicit drug use. REVIEW OF SYSTEMS: As noted above. All other systems reviewed and negative. PHYSICAL EXAMINATION: VITAL SIGNS: Blood pressure is 136/72. The patient is now in a narrow complex tachycardia rate of approximately 160 beats per minute. Respirations of 18. GENERAL: Well developed, well nourished. HEENT: No icterus. Good dentition. NECK: Supple. No masses or thyromegaly. LUNGS: No wheezes. Decreased breath sounds equal bilaterally. COR: She has an irregularly irregular tachycardic rhythm. ABD: Soft, nondistended, nontender, no hepatosplenomegaly. Consultation Report [facility] [address] [place]. [address] NAME: ORIANA VEGA : 42 STATUS : ADM [facility] PAT#: [id number] AGE: 75 ADM/REG DATE : 05/25/16 MR#: [id number] REPORT SERV DATE: 05/25/16 DICTATED BY: AURA FIELD DATE: 05/25/16 REPORT STATUS : Draft TRANSCRIBED BY: MODL DATE: 05/25/16 EXT: No clubbing, cyanosis or edema. Peripheral pulses 2+ or equal bilaterally. SKIN: Warm and dry. No visible lesions. MS: Chest wall without deformity, no obvious clavicular fractures. NEURO/PSYCH: Oriented x3. No anxiety or depression. EKG demonstrates evidence for a narrow complex tachycardia, heart rate 160 beats per minute on initial evaluation. Subsequent EKGs demonstrate what appeared to be an atypical atrial flutter. Clear evidence of flutter waves in V1, possibly in II, III and aVF. Of note, this does appear to be somewhat different than the flutter waves that were noted. Then, what was found on the previous EKG, rate of 160 beats per minute which had more of a saw-tooth pattern to the inferior leads. IMPRESSION: Today, she was in a narrow complex tachycardia. There was a question about whether this could be SVT versus some form of atrial flutter. The baseline suggested that it was an atypical atrial flutter and when we gave her 12 mg of adenosine, she did have a long pause along with what appeared to be very fine atrial flutter waves most notable in V1. After the adenosine had worn off, the patient went right back in to the same rhythm at 160 beats per minute. There was some variability to the ventricular conduction. It appears that the patient likely has atrial flutter possibly more than 1 type of atrial flutter that which likely goes along with her history of COPD and hypoxia. Her rates are rapid. We are going to try to administer amiodarone and Cardizem for rate control possibly conversion to sinus rhythm. I would like to give anticoagulation, but I am uncertain where we are with staging of her lung cancer and whether more invasive procedures need to be performed. I am going to consult Dr. Devi in Pulmonary Medicine. In regard to this, they had seen her and performed the bronchoscopy on her admission last week. As soon as we know about staging in any invasive procedures, I would recommend that she go on anticoagulation as soon as possible. We will hold the beta-baldomero that she was taking to use the IV and p.o. Cardizem as well as the p.o. amiodarone. For now, I did not recommend EP study and ablation as it appears that at least one of the atrial flutters is atypical and likely requires a prolonged mapping procedure and possibly transseptal puncture for treatment in which case I would prefer to treat her with antiarrhythmic therapy and rate control at this point in time. GS/MODL Aura Field M.D. / [id number] CC: Gurwinder Smith Jr, MD
--- NOTE | ~2016-05-25 | DS ---
Discharge Summary [facility] [address] [place]. [address] NAME: ORIANA HALL : 42 STATUS : DIS IN PAT#: [id number] AGE: 75 ADM/REG DATE : 05/25/16 MR#: [id number] REPORT SERV DATE: 05/28/16 DICTATED BY: SADIQ BROWN DATE: 05/26/16 REPORT STATUS : Draft TRANSCRIBED BY: CHINO DATE: 05/26/16 ADMISSION DATE: 05/25/2016 DISCHARGE DATE: 05/26/2016 CONSULTATIONS: Cardiology, Dr. Garcia Rizzo. DISCHARGE DIAGNOSES: 1. Atypical atrial flutter/atrial fibrillation, now on Cardizem p.o. for rate control and chronic anticoagulation with Eliquis. 2. Chronic obstructive pulmonary disease, on 2 L of oxygen per nasal cannula. 3. Right upper lobe lung adenocarcinoma diagnosed on 05/23/2016. The patient is now scheduled to have outpatient PET scan for further staging and oncology followup for initiation of treatment. 4. Chronic hypoxic respiratory failure due to chronic COPD and lung cancer. 5. Tobacco abuse, now on nicotine replacement therapy. DISCHARGE CONDITION: Stable. HISTORY OF PRESENT ILLNESS: For detailed HPI, please make reference to Dr. Vick's dictation on 05/25/2016. In brief, the patient presented to the hospital with complaints of worsening palpitation and increased shortness of breath as well as chest discomfort. In the ER, was found to have new onset rapid atrial fibrillation/atypical atrial flutter. The patient was admitted to the hospital for management of new atrial fibrillation/atrial flutter. HOSPITAL COURSE: Atypical atrial flutter/atrial fibrillation. Cardiology was consulted. The patient was placed on IV Cardizem drip. The patient continued to have persistent atrial flutter despite Cardizem drip initiation per Cardiology's recommendation. Amiodarone was added. The patient went from atrial flutter and transitioned to sinus rhythm. The patient was transitioned for Cardizem drip to p.o. Cardizem. The patient continued to stay in sinus rhythm while on p.o. amiodarone and p.o. Cardizem. The patient denied any further episode of palpitation, shortness of breath, or dizziness. At the time of discharge, the patient's heart rate was back in the 70s in sinus rhythm. Cardiology subsequently signed off. The patient was advised to continue p.o. Cardizem, p.o. amiodarone. The patient was also started on Xarelto for chronic anticoagulation. The patient was given a prescription for Xarelto prior to discharge. The patient was then advised to continue followup with Cardiology as an outpatient. Recent diagnosis of right upper lobe lung cancer. Of note, during the patient's recent admission on 05/24/2016, the patient had a new diagnosis of right upper lobe lung cancer. The patient is scheduled to have outpatient staging with PET scan. The patient is also scheduled to follow up with Oncology on 05/28/2016. COPD. No evidence of acute COPD exacerbation during the course of this admission. The patient was continued on albuterol nebulizer and nasal oxygen. The patient was advised to continue nasal oxygen and to abstain from tobacco use. Discharge Summary [address] [address] NAME: ORIANA HALL : 42 STATUS : DIS IN PAT#: [id number] AGE: 75 ADM/REG DATE : 05/25/16 MR#: [id number] REPORT SERV DATE: 05/28/16 DICTATED BY: SADIQ BROWN DATE: 05/26/16 REPORT STATUS : Draft TRANSCRIBED BY: CHINO DATE: 05/26/16 DISCHARGE MEDICATIONS: 1. Cardizem 180 mg p.o. daily. 2. Amiodarone 400 mg tablet one p.o. b.i.d. x7 days then to reduce to one p.o. daily. 3. Plavix 75 mg p.o. at bedtime. 4. Prilosec 40 mg p.o. daily. 5. Spiriva Respimat 2 puffs once a day. 6. ProAir HFA 2 puffs p.r.n. DISCHARGE DISPOSITION: Home. DISCHARGE CONDITION: Stable. DISCHARGE ACTIVITIES: As tolerated. DISCHARGE FOLLOWUP: 1. To follow up with Oncology. 2. To have an outpatient PET scan for staging of recent diagnosis of lung cancer. 3. To follow up with Cardiology as an outpatient. 4. To follow up with primary care physician as an outpatient. Greater than 35 minutes was used to plan this patient's discharge, reconcile of medication, and advised the patient on discharge plans and followup. IOO/MODL Sadiq Brown MD / [id number] CC: MD Courtney Kapoor M.D.
--- NOTE | ~2016-05-25 | HP ---
History And Physical [place] [id number] [facility] [place]. [address] NAME: ORIANA VEGA : 41 STATUS : ADM Moira PAT#: [id number] AGE: 75 ADM/REG DATE : 05/25/16 MR#: [id number] REPORT SERV DATE: 05/25/16 DICTATED BY: MIGUEL TSANG DATE: 05/25/16 REPORT STATUS : Draft TRANSCRIBED BY: MODSammy DATE: 05/25/16 DATE OF ADMISSION: 05/25/2016 Ms. Vega is a 75-year-old white female patient, who was discharged from the hospital just two days ago, comes back in this morning because she developed palpitations, increasing shortness of breath, and chest discomfort again on the left side of the chest last night. Her main complaint at this time is palpitations and just left chest discomfort more than shortness of breath. The palpitations were so uncomfortable that she decided to come into the ER again this morning. The patient was found to be in atrial fibrillation in the ER and hence the reason for admission. The patient was evaluated at bedside and she denies any headaches, trouble swallowing, blurry vision. She does complain of a little nausea but no vomiting. There is no significant abdominal pain. There is no dysuria, hematuria, blood in stool, diarrhea, etc. Other than the palpitations, slight difficulty breathing and some chest discomfort that is persisting now at a level of 3 on a scale of 10 on the left side of the chest still, the patient has no other complaints. The patient seems a little anxious. Please see my discharge summary that was dictated just yesterday when this patient was sent home on home oxygen. REVIEW OF SYSTEMS: As above. PAST MEDICAL HISTORY: 1. 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 2. COPD. 3. Chronic hypoxic respiratory failure for which patient is on home oxygen at 2 L/minute. 4. Tobacco abuse which is ongoing. FAMILY HISTORY: Noncontributory to the relevant problem right now. HOME MEDICATIONS: At this time include the following: She is on amlodipine 5 mg p.o. b.i.d., Lipitor 40 mg p.o. at bedtime, Plavix 75 mg p.o. at bedtime, Lopressor 50 mg p.o. b.i.d., potassium 20 mEq once a day, Claritin 10 mg once a day, Ativan 0.5 mg p.o. once a day p.r.n., Prilosec 40 mg once a day, Percocet 5/325 one p.o. t.i.d. p.r.n. for chest pain, Spiriva two puffs once a day, and ProAir HFA two puffs every four hours p.r.n. SOCIAL HISTORY: The patient states that she has completely quit smoking. She also states that she does not drink any alcohol. Denies any illicit drug use. The patient is and currently lives with . PHYSICAL EXAMINATION: GENERAL: The patient is awake, alert, oriented, appears little anxious. VITAL SIGNS: Today show that her blood pressure is 137/72, right now her heart rate is History And Physical [address] [address] NAME: ORIANA VEGA : 41 STATUS : ADM Moira PAT#: [id number] AGE: 75 ADM/REG DATE : 05/25/16 MR#: [id number] REPORT SERV DATE: 05/25/16 DICTATED BY: MIGUEL TSANG DATE: 05/25/16 REPORT STATUS : Draft TRANSCRIBED BY: CHINO DATE: 05/25/16 anywhere between 70-80 per minute and regular as the patient is already on Cardizem drip. O2 sats 95% on 2 L of oxygen per nasal cannula. The patient is afebrile. When patient came in, her heart rate was up in the 160s to 170s and the patient was found to be in rapid atrial fibrillation/atrial flutter. HEENT: Unremarkable. There seems to be mild jugular venous distention. CARDIOVASCULAR: S1, S2 is appreciated at this time. Even though, the patient seems to be a little anxious, I could not appreciate any tachycardia or irregular rhythm. The patient seems to have reverted to regular rhythm and her heart rate seems to be in the 70s to 80s. RESPIRATORY: Clear lungs. No rales or rhonchi noted, but poor lung expansion noted and poor air entry noted to the lung bases. ABDOMEN: Soft, nontender, nondistended. Bowel sounds are appreciated. No organomegaly noted. No masses noted. EXTREMITIES: There is no pedal edema. Pedal pulses are well felt in both lower extremities. NEUROLOGICAL: Even though patient has had an old stroke that affected vision in her left eye. The patient has no other residual deficits. Hence motor and sensory exam is normal. MUSCULOSKELETAL: No significant deficits or clinically normal major joints. PSYCHIATRIC: Normal affect. Most recent labs that I have on this patient shows a CBC that shows a completely normal CBC. Comprehensive metabolic profile shows a sodium of 141, potassium of 3.2 which will be corrected, BUN and creatinine are normal. LFTs are normal. Troponin I is normal. Brain natriuretic peptide is slightly elevated at 292. Portable chest x-ray shows persistent left lower lobe atelectasis and cardiomegaly. Otherwise, again right upper lobe malignant nodule which is adenocarcinoma was identified. Troponin I is normal. ABGs at this time show pH of 7.4, pCO2 of 28, PO2 of 66, O2 sats 93.8 on room air. ASSESSMENT: New onset atrial fibrillation/supraventricular tachycardia/atrial flutter with rapid ventricular response rate. At this time, it is controlled and the patient has reverted to sinus rhythm as the patient is on Cardizem drip. However, we will get Cardiology consult to advise more on this. Dr. Bishop is her regular strap cutter and patient is requesting to see him if possible or covering strap cutter and this will be accomplished. We will continue on her supplemental oxygen of 2 L/minute. Continue all her home medications that she takes for COPD, hypertension, hyperlipidemia, allergies, anxiety, and also Keflex that she takes to prevent UTIs on a regular basis. We will follow the patient and see what Cardiology recommends. The patient may need another echocardiogram at this time, but this will be up to Cardiology to decide on this. We will follow the patient. History And Physical [address] [place]. [address] NAME: ORIANA VEGA : 41 STATUS : ADM Moira PAT#: [id number] AGE: 75 ADM/REG DATE : 05/25/16 MR#: [id number] REPORT SERV DATE: 05/25/16 DICTATED BY: MIGUEL TSANG DATE: 05/25/16 REPORT STATUS : Draft TRANSCRIBED BY: CHINO DATE: 05/25/16 RRA/MODL Miguel Tsang M.D. / [id number] CC: Gurwinder Smith Jr, MD
--- NOTE | ~2016-05-25 | CN ---
Consultation Report [facility] [address] [place]. [address] NAME: ORIANA VEGA : 41 STATUS : ADM Moira PAT#: [id number] AGE: 75 ADM/REG DATE : 05/25/16 MR#: [id number] REPORT SERV DATE: 05/25/16 DICTATED BY: GARCIA RIZZO DATE: 05/25/16 REPORT STATUS : Draft TRANSCRIBED BY: MODL DATE: 05/25/16 CARDIOLOGY CONSULTATION DATE OF CONSULTATION: 05/25/2016 REASON FOR CONSULTATION: SVT. HISTORY OF PRESENT ILLNESS: Ms. Vega is a 75-year-old female, known to our group and followed by my partner, Dr. Adolfo Bishop, who presented to the ER early this morning for evaluation of sudden onset of palpitations and shortness of breath. The patient has a history of SVT and is currently being managed with metoprolol twice daily. I see from the medical record that she was hospitalized on 04/08/2016 and was seen in the ER weeks later, at which time, she was cardioverted both for the same issue. Her medical history is also notable for a recent diagnosis of lung adenocarcinoma based on the biopsy of the lung nodule that was noted during one of these prior admissions. She states that she is awaiting definitive pathology and has not yet seen Oncology to determine treatment plan. Currently, she is in sinus rhythm and her SVT has resolved. There are two EKGs that demonstrated narrow-complex tachycardia. There is mention of atrial fibrillation in the medical record, but there is no clear demonstration of this, and the patient denies any knowledge of this rhythm. Currently, she feels well. She has no palpitations or shortness of breath. She has no chest pain. She has had no dizziness, presyncope, or syncope. PAST MEDICAL HISTORY: 1. SVT, recurrent. 2. Coronary artery disease, nonobstructive with no prior revascularization. 3. Peripheral artery disease involving the lower extremities and renal arteries. 4. 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 5. History of stroke. 6. Hypertension. 7. COPD. 8. Tobacco abuse. 9. Lung nodule with a presumptive diagnosis of adenocarcinoma. MEDICATIONS: Per medical record, notable for metoprolol 50 mg twice daily. SOCIAL HISTORY: History of longstanding tobacco abuse. No alcohol. No illicits. ALLERGIES: SULFA, PENICILLIN, PROMETHAZINE. FAMILY HISTORY: Noncontributory. Consultation Report [place] [address] [place]. [address] NAME: ORIANA VEGA : 41 STATUS : ADM Moira PAT#: [id number] AGE: 75 ADM/REG DATE : 05/25/16 MR#: [id number] REPORT SERV DATE: 05/25/16 DICTATED BY: GARCIA RIZZO DATE: 05/25/16 REPORT STATUS : Draft TRANSCRIBED BY: CHINO DATE: 05/25/16 REVIEW OF SYSTEMS: Per HPI. Otherwise, negative. PHYSICAL EXAMINATION: VITAL SIGNS: Heart rate 64, blood pressure 137/55, respirations 16, and 90% on 2 L nasal cannula. GENERAL: Appears comfortable. HEENT: Sclerae anicteric; mucous membranes moist. NECK: No JVD. Thyroid not tender or enlarged. CARDIOVASCULAR: 3/6 systolic murmur best appreciated in the left upper sternal border. PULMONARY: Lung silverio CTA. ABDOMEN: Soft, nontender, no masses. EXTREMITIES: Warm, no edema. NEUROLOGIC: Grossly without deficits. LABORATORY DATA: Labs reviewed. EKG: Narrow-complex tachycardia noted with ventricular rate approximately 165. Followup EKG demonstrates normal sinus rhythm. IMPRESSION/RECOMMENDATIONS: 1. Supraventricular tachycardia, recurrent, with possible re-entry mechanism. 2. Nonobstructive coronary artery disease. 3. Peripheral arterial disease. 4. Lung nodule. Suspect primary lung adenocarcinoma. The patient is already on metoprolol, but is having breakthrough SVT events. We will add low-dose diltiazem as her heart rate tolerates. We will consider antiarrhythmic drug versus ablation, and we will consult EP to pipe layer helper in this decision making. Further recommendations pending. SHASHANK/CHINO Garcia Rizzo MD / [id number] CC: Gurwinder Smith Jr, MD
[2016-05-25 05:44] LABS: BASOPHILS 0.3 %; BASOPHILS ABSOLUTE 0.03 10/3/uL (0.0-0.16); EOSINOPHILS 3.5 %; EOSINOPHILS ABSOLUTE 0.36 10/3/uL (0.0-0.53); ER CBC TAT 0 Hrs 03 Mins; HEMOGLOBIN 14.2 g/dL (12.0-16.0); IMMATURE GRANULOCYTES 0.2 %; IMMATURE GRANULOCYTES ABSOLUTE 0.02 10/3/uL (0.0-0.11); LYMPHOCYTES 19.3 %; LYMPHOCYTES ABSOLUTE 1.97 10/3/uL (0.67-4.30); MEAN CORPUS HGB CONC 34.1 g/dL (32.0-36.0); MEAN CORPUSCULAR HEMOGLOB 29.9 pg (26.0-34.0); MEAN CORPUSCULAR VOLUME 87.6 fL (80-100); MEAN PLATELET VOLUME 10.2 fL (9.2-13.0); MONOCYTES 5.3 %; MONOCYTES ABSOLUTE 0.54 10/3/uL (0.21-1.20); NEUTROPHILS 71.4 %; NEUTROPHILS ABSOLUTE 7.31 10/3/uL (2.02-8.40); PLATELET COUNT 235 10/3/uL (150-400); RBC DISTRIBUTION WIDTH 13.7 % (12.0-16.0); RED CELL COUNT 4.75 10/6/uL (4.0-5.6); WHITE BLOOD CELLS 10.2 10/3/uL (4.5-10.5)
[2016-05-25 05:55] LABS: HEMATOCRIT 41.6 % (36.0-48.0)
[2016-05-25 05:56] LABS: MANUAL DIFF NO %
[2016-05-25 06:04] LABS: A/G RATIO 0.9 (0.7-1.9); ALBUMIN 3.5 G/DL (3.5-5.0); ALKALINE PHOSPHATASE 88 U/L (45-117); BUN (BLOOD UREA NITROGEN) 9 MG/DL (6-23); CALCIUM, SERUM 9.2 MG/DL (8.5-10.4); CHLORIDE, SERUM 103 MMOL/L (96-112); CO2 (CARBON DIOXIDE) 25 MMOL/L (24-34); CREATININE 0.72 MG/DL (0.55-1.02); GFR AFRICAN AMERICAN 96 ML/MIN (>=60); GFR NON AFRICAN AMERICAN 83 ML/MIN (>=60); GLOBULIN 4.1 G/DL (2.5-4.1); GLUCOSE, SERUM 108 MG/DL (60-99); POTASSIUM, SERUM 3.2 MMOL/L (3.5-5.3); SGOT(AST) 40 U/L (5-40); SGPT(ALT) 45 U/L (5-65); SODIUM, SERUM 141 MMOL/L (135-148); TOTAL BILIRUBIN 0.7 MG/DL (0-1.2); TOTAL PROTEIN 7.6 G/DL (6.0-8.5); TROPONIN I 0.03 NG/ML (<0.05)
[~2016-05-25 06:44] MED LIST changes: +PCET PO; +PROAIR HFA INH; +SPIRIVA RESPIMAT INH
[2016-05-25 07:37] LABS: BE (BASE EXCESS) -1.6 MEQ/L (0 +/- 2.5); CARBOXYHEMOGLOBIN 1.7 % (0-3); HCO3 (ACTUAL BICARBONATE) 20.4 MEQ/L (23-27); INSTRUMENT SERIAL # 8087; PCO2 (CO2 TENSION) 28 MMHG (35-45); PO2 (O2 TENSION) 66 MMHG (79-93); pH 7.48 (7.37-7.43)
[2016-05-25 07:38] LABS: HEMOBLOGIN CONTENT 14.5 G/DL (12-16); METHEMOGLOBIN 0.2 % (0-3); O2 CONTENT 18.8 VOL% (18-24); SAMPLE Arterial
[2016-05-25] MEDS ORDERED: BIST PO (08:36)
[2016-05-26 04:08] LABS: BE (BASE EXCESS) 1.2 MEQ/L (0 +/- 2.5); CARBOXYHEMOGLOBIN 1.3 % (0-3); DEVICE NC; HCO3 (ACTUAL BICARBONATE) 23.7 MEQ/L (23-27); HEMOBLOGIN CONTENT 14.3 G/DL (12-16); INSTRUMENT SERIAL # 8087; METHEMOGLOBIN 0.3 % (0-3); O2 CONTENT 17.5 VOL% (18-24); PCO2 (CO2 TENSION) 32 MMHG (35-45); PO2 (O2 TENSION) 53 MMHG (79-93); SAMPLE Arterial; pH 7.49 (7.37-7.43)
[2016-05-26 04:54] LABS: BASOPHILS 0.2 %; BASOPHILS ABSOLUTE 0.02 10/3/uL (0.0-0.16); EOSINOPHILS 1.7 %; EOSINOPHILS ABSOLUTE 0.18 10/3/uL (0.0-0.53); HEMOGLOBIN 13.8 g/dL (12.0-16.0); IMMATURE GRANULOCYTES 0.3 %; IMMATURE GRANULOCYTES ABSOLUTE 0.03 10/3/uL (0.0-0.11); LYMPHOCYTES 23.4 %; LYMPHOCYTES ABSOLUTE 2.42 10/3/uL (0.67-4.30); MEAN CORPUS HGB CONC 34.5 g/dL (32.0-36.0); MONOCYTES 7.2 %; MONOCYTES ABSOLUTE 0.74 10/3/uL (0.21-1.20); NEUTROPHILS 67.2 %; NEUTROPHILS ABSOLUTE 6.93 10/3/uL (2.02-8.40); PLATELET COUNT 261 10/3/uL (150-400); RBC DISTRIBUTION WIDTH 13.7 % (12.0-16.0); WHITE BLOOD CELLS 10.3 10/3/uL (4.5-10.5)
[2016-05-26 04:55] LABS: MANUAL DIFF NO %
[2016-05-26 05:01] LABS: A/G RATIO 0.8 (0.7-1.9); ALKALINE PHOSPHATASE 79 U/L (45-117); BUN (BLOOD UREA NITROGEN) 8 MG/DL (6-23); CHLORIDE, SERUM 103 MMOL/L (96-112); CO2 (CARBON DIOXIDE) 25 MMOL/L (24-34); CREATININE 0.69 MG/DL (0.55-1.02); GFR AFRICAN AMERICAN 99 ML/MIN (>=60); GFR NON AFRICAN AMERICAN 86 ML/MIN (>=60); GLOBULIN 3.8 G/DL (2.5-4.1); GLUCOSE, SERUM 117 MG/DL (60-99); POTASSIUM, SERUM 3.1 MMOL/L (3.5-5.3); SGOT(AST) 36 U/L (5-40); SGPT(ALT) 48 U/L (5-65); SODIUM, SERUM 139 MMOL/L (135-148); TOTAL BILIRUBIN 0.9 MG/DL (0-1.2); TOTAL PROTEIN 6.8 G/DL (6.0-8.5)
[2016-05-26 10:42] LABS: TROPONIN I 0.04 NG/ML (<0.05)
[2016-05-26] MEDS ORDERED: CORDARONE PO (17:17)
[2016-05-26] MEDS ORDERED: CARDIZEM LA180 MG PO (17:20)
[2016-05-26] MEDS ORDERED: CRESTOR40 MG PO (17:24)
[2016-05-26] MEDS ORDERED: XARELTO20 MG PO (17:25)
== END 2016-05-26 17:57 | disposition home or self-care (01) | DRG 309 ==
LOC: ER 06:44 → CDU1 08:22 → CDU2 09:08 → 6NO 09:12
PROVIDERS: Internal Medicine; Nurse Practitioner Acute Care
DX: I48.91 Unspecified atrial fibrillation (principal); C34.11 Malignant neoplasm of upper lobe, right bronchus or lung; J96.11 Chronic respiratory failure with hypoxia; Z99.81 Dependence on supplemental oxygen; J44.9 Chronic obstructive pulmonary disease, unspecified; I48.4 Atypical atrial flutter; I47.1 Supraventricular tachycardia; I25.10 Atherosclerotic heart disease of native coronary artery without angina pectoris; F17.210 Nicotine dependence, cigarettes, uncomplicated; I73.9 Peripheral vascular disease, unspecified; I10 Essential (primary) hypertension; E78.5 Hyperlipidemia, unspecified; F41.9 Anxiety disorder, unspecified; Z86.73 Personal history of transient ischemic attack (TIA), and cerebral infarction without residual deficits; Z79.02 Long term (current) use of antithrombotics/antiplatelets
CPT/HCPCS: 36600; 71010; 80053; 82805; 83880; 84132; 84484; 85025; 87040; 87070; 87205; 93005; 94640; 96374; 99291; A9270-GY; J0153; J0282

== ENCOUNTER 2016-06-07 18:37 | Inpatient (IN) | payer MEDICARE, OTHER ==
--- NOTE | ~2016-06-07 | HP ---
History And Physical [place] [address] [facility] [place]. [address] NAME: ORIANA HALL : 41 STATUS : ADM IN [facility]#: [id number] AGE: 75 ADM/REG DATE : 06/07/16 MR#: [id number] REPORT SERV DATE: 06/08/16 DICTATED BY: NIGHAT FELIX DATE: 06/08/16 REPORT STATUS : Draft TRANSCRIBED BY: MODSammy DATE: 06/08/16 DATE OF ADMISSION: 06/07/2016 CHIEF COMPLAINT: Weakness, transferred from [facility]. HPI: The patient is a 75-year-old female with past medical history of COPD who quit smoking approximately a month ago, atrial flutter/fibrillation, she is followed by Dr. Bishop for the last 20 years, recent lung cancer diagnosis, who has currently been on Xarelto for atrial fibrillation, recently changed from Eliquis, unclear indication for change, who presents after having multiple episodes of black stools in the last few days, progressive weakness, dyspnea, and symptomatic orthostasis. The patient was evaluated at outside facility and concerned for upper GI bleed. The patient does not have a GI physician. The patient was noted to have shortness of breath, chest pain. There is nothing improving the pain, nothing worsened the pain. Symptoms occurred last few days, but have been worse today when she was having increased dizziness spells and thought she should come in for evaluation. The patient initially had a heavy tight chest pain which has since resolved. The patient has had this kind of discomfort in the past. REVIEW OF SYSTEMS: CONSTITUTIONAL: No fevers or body aches. EYES: No eye pain or visual changes. ENT: No sore throat or tinnitus. RESPIRATORY: Positive for shortness of breath. No wheezing. CV: Positive for chest pain, but no edema. ENDO: No polyuria or polydipsia. HEME: No bruising. Does have GI type bleeding. URINARY: No frequency or dysuria. MUSCULOSKELETAL: No myalgias, arthralgias above baseline. SKIN: No increased rashes or bruisability. NEURO: No headaches or weakness, but does have dizziness. GI: Positive for multiple black stools and mild abdominal discomfort. PSYCH: Does have nighttime anxiety and insomnia. PAST MEDICAL HISTORY: Right upper lobe adenocarcinoma of the lung. Positive for cancer, COPD, chronic hypoxic respiratory failure on 2 L by nasal cannula, tobacco use which she quit approximately one month ago, but smoked for majority of adult life. FAMILY HISTORY: No coronary artery disease and diabetes. ADDITIONAL SOCIAL HISTORY: Quit smoking one month ago. No drugs or alcohol. 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 ALLERGIES: PENICILLIN, SULFA, PHENERGAN. History And Physical [address] [address] NAME: ORIANA HALL : 41 STATUS : ADM IN [facility]#: [id number] AGE: 75 ADM/REG DATE : 06/07/16 MR#: [id number] REPORT SERV DATE: 06/08/16 DICTATED BY: NIGHAT FELIX DATE: 06/08/16 REPORT STATUS : Draft TRANSCRIBED BY: CHINO DATE: 06/08/16 PHYSICAL EXAMINATION: VITAL SIGNS: The patient was reported to have blood pressure at outside facility at 101/54, currently 152/67, pulse 71, O2 saturations 97% on 2 L, respirations 16. GENERAL: Elderly. No acute distress. EYES: Pale. No scleral icterus. EOMI. Dry mucous membranes. Tongue midline. NECK: No JVD. CHEST: Equal chest expansion. No wheezes. CV: Slow 3/6 systolic murmur. No rubs. Normal. CARDIAC: No pedal edema. GI: Soft, nontender, nondistended. No rebound. Bowel sounds positive : Deferred. MUSCULOSKELETAL: Moves all extremities x4. SKIN: Warm and dry, but pale nailbeds. NEURO: Alert and oriented. Weak voice. Symmetrical strength in hands. Gait not tested due to symptomatic orthostasis. Symmetrical smile. PSYCH: Appropriate mood and affect. LABORATORY DATA: Labs from outside facility. BUN and creatinine at 31 and 1. Sodium 137, potassium 3.6, chloride 104, bicarb 24, glucose 137, bilirubin 0.2. LFTs within normal limits. PTT 228, INR 1.08, H and H 7.8 and 23.6, previously was 13.8 and 14. WBC 10.8, platelets 285. Troponin negative. CK-MB negative. Chest x-ray with cardiomyopathy, 2 cm nodule. FOBT positive. EKG was normal sinus rhythm, rate 84, and QTc 451. HOME MEDICATIONS: Albuterol, amiodarone, Norvasc, Dulcolax, Keflex, Plavix, Cardizem, Claritin, Ativan, Nitrostat, Prilosec Xarelto, Crestor, Spiriva. ASSESSMENT: 1. Acute blood loss anemia. 2. Recent lung cancer. 3. Chronic obstructive pulmonary disease. 4. Atrial fibrillation/flutter history. 5. Pressure type chest pain. 6. Situational anxiety. 7. Insomnia. PLAN: 1. For acute blood loss anemia type and cross 2 units. Transfuse now. The patient's recent hemoglobin has been approximately 14 down to 7.8. We will stop Xarelto. Hold Plavix. Consult. Unclear history of recent Coumadin use. However, INR is approximately normal. The patient was recently supposed to have been discharged on Eliquis, but currently has been started on Xarelto, unclear if there was contraindication. We will have GI evaluation. Protonix drip and transfuse to maintain hemoglobin greater than 8 due to cardiac history. 2. Recent lung cancer diagnosis in the right upper lobe, follows with Oncology. 3. COPD, 2 L dependent and stopped smoking approximately one month ago. DuoNebs as History And Physical [address] [address] NAME: ORIANA HALL : 41 STATUS : ADM IN [facility]#: [id number] AGE: 75 ADM/REG DATE : 06/07/16 MR#: [id number] REPORT SERV DATE: 06/08/16 DICTATED BY: NIGHAT FELIX DATE: 06/08/16 REPORT STATUS : Draft TRANSCRIBED BY: CHINO DATE: 06/08/16 needed. Oxygen as needed. 4. Atrial fibrillation/flutter. Holding anticoagulation due to acute bleed. Continue antiarrhythmics. Rate acceptable. 5. Chest pain. Serial troponins. Has had workup with cards, likely demand from acute blood loss anemia. 6. Situational anxiety from recent diagnosis and resultant insomnia, p.r.n.'s. The patient has been using Ativan at home which does not cause relief. All questions answered of the patient at bedside. SILVAN/RAYL Nighat Felix MD / [id number] CC: MD Courtney Chow M.D.
--- NOTE | ~2016-06-07 | DS ---
Discharge Summary [facility] [address] [place]. [address] NAME: ORIANA HALL : 41 STATUS : DIS IN PAT#: [id number] AGE: 75 ADM/REG DATE : 06/07/16 MR#: [id number] REPORT SERV DATE: 06/14/16 DICTATED BY: EVIN RESENDEZ II DATE: 06/13/16 REPORT STATUS : Draft TRANSCRIBED BY: MODL DATE: 06/13/16 ADMISSION DATE: 06/07/2016 DISCHARGE DATE: 06/13/2016 DISCHARGE DIAGNOSES: 1. Acute blood loss anemia secondary to gastrointestinal bleeding. 2. 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 3. Recently diagnosed lung cancer. 4. Chronic obstructive pulmonary disease. 5. Atrial fibrillation, Xarelto on hold. 6. Anxiety. 7. Chronic hypoxic respiratory failure, on 2 L at home. CONSULTS: 1. Gurwinder Vela M.D., with GI. 2. Mario Koenig M.D., with Cardiology. 3. Gurwinder Cuellar M.D., with Surgery. BRIEF HISTORY OF PRESENT ILLNESS: The patient is a 75-year-old female with the above history presented to [facility] as a transfer from [place] due to weakness and evidence of GI bleed in the setting of Plavix and Xarelto. For detailed history and physical examination, please see Dr. Alexandra's note from 06/08/2016. HOSPITAL COURSE: On admission, the patient's hemoglobin was 6.6. She was transfused. Her Xarelto has been held and GI was consulted. She subsequently underwent an upper endoscopy which revealed hiatal hernia, a single nonbleeding angioectasia in the stomach treated with full duration. Colonoscopy was subsequently done, which showed a mass emanating from the appendiceal orifice which was subsequently biopsied and preliminarily returning positive for adenocarcinoma. Otherwise there was a single nonbleeding colonic angiodysplastic lesion, also treated by fulguration. Otherwise diverticulosis and two 3-4 mm polyps at the rectosigmoid colon resected and retrieved. Given the concern and preliminary findings Surgery was consulted at the request of Dr. Vela; however, at this point in time, the official pathology report has not returned, so the patient and Surgery elected to follow up as an outpatient for consideration for resection of the patient's appendiceal lesion. Otherwise, since then her hemoglobin has remained stable and currently hemoglobin 9.2, with no further evidence of melena. Cardiology is involved given her anticoagulation and atrial fibrillation. Her Cardizem was discontinued and amiodarone continued. She was also started on Coreg. She did actually has some sinus radha which is why her Cardizem was stopped. Her Xarelto is currently on hold given bleeding and anticipation of surgery. Plavix also on hold. At this point, the patient is stable for discharge and will follow up with Dr. Bishop in Cardiology and Dr. Cuellar as well as Radiation Oncology as scheduled. DISCHARGE MEDICATIONS: 1. Amiodarone 200 mg p.o. daily. 2. Keflex 250 mg p.o. q.h.s. for prevention of UTI. 3. Claritin 10 mg p.o. daily. Discharge Summary [place] [address] [facility] [place]. [address] NAME: ORIANA HALL : 41 STATUS : DIS IN PAT#: [id number] AGE: 75 ADM/REG DATE : 06/07/16 MR#: [id number] REPORT SERV DATE: 06/14/16 DICTATED BY: EVIN RESENDEZ II DATE: 06/13/16 REPORT STATUS : Draft TRANSCRIBED BY: CHINO DATE: 06/13/16 4. Spiriva two puffs inhale daily. 5. Norvasc 5 mg p.o. b.i.d. 6. Nitrostat p.r.n. 7. Ativan 0.5 mg p.o. daily p.r.n. anxiety. 8. Prilosec 40 mg p.o. daily. 9. ProAir two puffs q.4 hours p.r.n. 10.Dulcolax p.r.n. 11.Crestor 40 mg p.o. daily. 12.Coreg 6.25 mg p.o. b.i.d. 13.KCl 10 mEq p.o. daily. 14.Percocet 5/325 mg p.o. q.12 hours p.r.n. pain. DISCHARGE INSTRUCTIONS: The patient will follow up with Dr. Cuellar this week. She will also follow with Dr. Bishop in two to three weeks. Otherwise, follow up with Radiation Oncology as scheduled. TONIA/CHINO Evin Resendez II, MD / [id number] CC: MD Courtney Sweet II, M.D.
--- NOTE | ~2016-06-07 | EGD ---
EGD REPORT [facility] [address] [place] [address] NAME: ORIANA MUÑOZ : 41 STATUS : ADM IN PAT#: [id number] AGE: 75 ADM/REG DATE : 06/07/16 MR#: [id number] REPORT SERV DATE: 06/10/16 DICTATED BY: GURWINDER GONSALEZ DATE: 06/10/16 REPORT STATUS : Draft TRANSCRIBED BY: [facility] DATE: 06/10/16 Endoscopy Center Patient Name: Oriana Muñoz Date of : 1940 Attending MD: GURWINDER GONSALEZ MD Procedure Date No Time: 06/10/2016 Procedure: Upper GI endoscopy Indications: Melena Medicines: Monitored Anesthesia Care Complications: No immediate complications. Estimated blood loss: Minimal. Procedure: After obtaining informed consent, the endoscope was passed under direct vision. Throughout the procedure, the patient's blood pressure, pulse, and oxygen saturations were monitored continuously. The GIF [id number] was introduced through the mouth, and advanced to the second part of duodenum. The upper GI endoscopy was accomplished without difficulty. The patient tolerated the procedure well. Findings: The examined esophagus was normal. A medium-sized hiatus hernia was present. A single small angioectasia with no bleeding was found in the gastric antrum. Fulguration to ablate the lesion to prevent bleeding by argon plasma at 1 liter/minute and 30 noriega was successful. Estimated blood loss was minimal. The examined duodenum was normal. The exam was otherwise without abnormality. Impression: - Hiatus hernia. - A single non-bleeding angioectasia in the stomach. Treated by fulguration. - The examination was otherwise normal. Recommendation: - Return patient to hospital gan for ongoing care. - Perform a colonoscopy tomorrow. Procedure Code(s): --- Professional --- 06523, Esophagogastroduodenoscopy, flexible, transoral; with control of bleeding, any method Diagnosis Code(s): --- Professional --- K44.9, Diaphragmatic hernia without obstruction or gangrene EGD REPORT [facility] [address] [facility] [place]. [address] NAME: ORIANA MUÑOZ : 41 STATUS : ADM IN [facility]#: [id number] AGE: 75 ADM/REG DATE : 06/07/16 MR#: [id number] REPORT SERV DATE: 06/10/16 DICTATED BY: GURWINDER GONSALEZ DATE: 06/10/16 REPORT STATUS : Draft TRANSCRIBED BY: [employer] DATE: 06/10/16 K31.819, Angiodysplasia of stomach and duodenum without bleeding K92.1, Melena CPT copyright 2013 [employer]. All rights reserved. The codes documented in this report are preliminary and upon guitar instructor review may be revised to meet current compliance requirements. Gurwinder Gonsalez MD GURWINDER GONSALEZ MD 06/10/2016 9:29 AM This report has been signed electronically. Number of Addenda: 0 Note Initiated On: 06/10/2016 9:05 AM Scope Withdrawal Time 0 hours 0 minutes 0 seconds [address] [place] [address]
--- NOTE | ~2016-06-07 | CN ---
Consultation Report [facility] [address] [place]. [address] NAME: ORIANA HALL : 41 STATUS : ADM IN PAT#: [id number] AGE: 75 ADM/REG DATE : 06/07/16 MR#: [id number] REPORT SERV DATE: 06/13/16 DICTATED BY: SYED GONCALVES DATE: 06/13/16 REPORT STATUS : Draft TRANSCRIBED BY: MODL DATE: 06/13/16 GENERAL SURGERY CONSULTATION AND H AND P DATE OF CONSULTATION: 06/13/2016 CHIEF COMPLAINT: Mass at appendiceal orifice. HISTORY OF PRESENT ILLNESS: This is a 75-year-old female, who presented as a transfer to [facility], where she was having some chest pain, shortness of breath, black tarry stools, and feeling overall weak. She recently was diagnosed with adenocarcinoma of the lung and has a significant history of atrial fibrillation/atrial flutter and recently was changed from Eliquis to Xarelto. Workup was performed and she was found to have an acute blood loss anemia with an initial hemoglobin of 6.6, and she had been having black tarry stools for the last three to four days prior to admission and also with associated symptoms of shortness of breath, dizziness, overall fatigue, and the atypical chest pain. She denied any bright red blood per rectum. So, the workup was performed. The patient got two units of blood and got an EGD and a colonoscopy. The EGD revealed a medium-sized hiatal hernia, a single small nonbleeding angioectasia in the gastric antrum that was fulgurated, the rest of the exam was benign. Colonoscopy that was performed revealed a 12 mm nodule at the appendiceal orifice that was biopsied, official path report is pending; a single nonbleeding angiodysplastic lesion in the cecum that was fulgurated; lilly-diverticulosis; two sessile polyps that were cold forceps biopsied. Since these endoscopy interventions, the patient has had returned to normal stooling, no melena, no bright red blood per rectum. The patient is feeling much better since her transfusion of two units of blood, tolerating the diet, ambulating well, voiding well. REVIEW OF SYSTEMS: A 12-system review negative, except as mentioned in the HPI. ALLERGIES: NONE. PAST MEDICAL HISTORY: 1. COPD. 2. Chronic hypoxic respiratory failure with 2 L of O2 needed. 3. Coronary artery disease. 4. Atrial fibrillation/atrial flutter, currently on Xarelto. 5. 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 PAST SURGICAL HISTORY: 1. Cardiac stents, for which she is on Plavix. 2. 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 3. Breast implants 30 years ago. ALLERGIES: SULFA, PENICILLIN, PROMETHAZINE. Consultation Report [address] [place]. [address] NAME: ORIANA HALL : 41 STATUS : ADM IN PAT#: [id number] AGE: 75 ADM/REG DATE : 06/07/16 MR#: [id number] REPORT SERV DATE: 06/13/16 DICTATED BY: SYED GONCALVES DATE: 06/13/16 REPORT STATUS : Draft TRANSCRIBED BY: CHINO DATE: 06/13/16 SOCIAL HISTORY: Longstanding tobacco abuse. No alcohol. No drugs. FAMILY HISTORY: Noncontributory. MEDICATIONS: See list, but pertinent for Plavix and Xarelto. PHYSICAL EXAMINATION: VITAL SIGNS: Temperature 97.9, blood pressure 126/58, pulse 65, respiratory rate 18, O2 sats 97% on 2 L nasal cannula. GENERAL: Well developed, well nourished, no acute distress white female, appears stated age. HEENT: Normocephalic and atraumatic. PERRLA, EOMI. Mucous membranes are moist. NECK: No lymphadenopathy. Trachea midline. CARDIOVASCULAR: Regular rate and rhythm. LUNGS: Clear to auscultation bilaterally. ABDOMEN: Soft, nondistended, nontender. Bowel sounds present. No peritonitis. No mass is palpated. EXTREMITIES: No clubbing, cyanosis, or edema. 2+ pulses. MUSCULOSKELETAL: Moves all extremities well. NEURO: Cranial nerves 2 through 12 are intact. AAO x3. LABORATORY DATA: Most recent labs: White blood cell count 8.1, hematocrit 28.2, platelets 266. Sodium 143, potassium 3.7, chloride 109, bicarb 28, BUN 13, creatinine 0.8, glucose 103, calcium 8.2, magnesium 2.4. ASSESSMENT AND PLAN: A 75-year-old female with right upper lobe adenocarcinoma, acute blood loss anemia, and the incidental appendiceal orifice mass finding. We will await the final pathology report on the appendiceal mass. No emergent operation is deemed necessary at this time. We recommend the patient to follow up in our clinic later this week. At that time, we will have the official path report and at that time, we can talk with the patient about the surgical interventions that will be necessary, which could include appendectomy or right hemicolectomy depending on pathology report. This plan was discussed with the patient and family and they expressed a verbal understanding and wished to proceed forward with the plan from a general surgery standpoint. DICTATED BY: MD TK Reed/CHINO Syed Goncalves M.D. / [id number] Consultation Report [address] [address] NAME: ORIANA HALL : 41 STATUS : ADM IN [facility]#: [id number] AGE: 75 ADM/REG DATE : 06/07/16 MR#: [id number] REPORT SERV DATE: 06/13/16 DICTATED BY: SYED GONCALVES DATE: 06/13/16 REPORT STATUS : Draft TRANSCRIBED BY: CHINO DATE: 06/13/16 CC: MD Courtney Sweet II, M.D.
--- NOTE | ~2016-06-07 | CN ---
Consultation Report [facility] [address] [place]. [address] NAME: ORIANA VEGA : 41 STATUS : ADM IN PAT#: [id number] AGE: 75 ADM/REG DATE : 06/07/16 MR#: [id number] REPORT SERV DATE: 06/08/16 DICTATED BY: SHANNAN FRANK DATE: 06/08/16 REPORT STATUS : Draft TRANSCRIBED BY: MODSammy DATE: 06/08/16 GI CONSULTATION DATE OF CONSULTATION: 06/08/2016 REASON FOR CONSULTATION: Evaluation and management of acute blood loss anemia, reports of melena. HISTORY OF PRESENT ILLNESS: Ms Vega is a very pleasant 75-year-old female patient, who was admitted on 06/08/2016 to [facility] as a transfer from [facility]. She presented there with a chief complaint of chest pain, shortness of breath, and black tarry stools. She was recently at [facility] in mid May. She was diagnosed with adenocarcinoma of the lung, also has a history of atrial fib, recently changed from Eliquis to Xarelto. She had on discharge from [facility] 05/26/2016, a hemoglobin of 13.8. When she came in, she had a notable hemoglobin of 6.6. She states that she has been seeing black tarry stools for the last three to four days. She has had shortness of breath, dizziness, and overall fatigue, thus prompting her ER visit. She was found to be Hemoccult positive with black stool. She denies any red blood per rectum. She has never had EGD or colonoscopy. She has not used any recent NSAIDs. I have discussed with her, we will plan on upper endoscopy on 06/09/2016 after the Xarelto has cleared her system. She also was noted to have a history of being on Plavix, last dose on 06/06/2016. I discussed with her risks, benefits, alternatives, and complications to include, but not limited to risk of bleeding, perforation, infection, reaction to medication, as well as cardiac and pulmonary side effects. She is agreeable to proceed. PAST MEDICAL HISTORY: 1. Recent diagnosis of right upper lobe adenocarcinoma, COPD, chronic hypoxic respiratory failure with 2 L of O2 needed, tobacco abuse cessation one month ago; however, she has used marijuana for the majority of her adult life. 2. Coronary artery disease. PAST SURGICAL HISTORY: 1. Cardiac stenting. 2. Squamous cell carcinoma of the lip removed. 3. Breast implants. ALLERGIES: PENICILLIN, SULFA, AND PHENERGAN. FAMILY HISTORY: Noncontributory from a GI standpoint. SOCIAL HISTORY: Positive for tobacco cessation one month ago. No alcohol. Positive for history of marijuana use. HOME MEDICATIONS: Consist of ProAir HFA, Cordarone, Norvasc, Dulcolax, Keflex, Plavix, Consultation Report [place] [address] [place]. [address] NAME: ORIANA VEGA : 41 STATUS : ADM IN PAT#: [id number] AGE: 75 ADM/REG DATE : 06/07/16 MR#: [id number] REPORT SERV DATE: 06/08/16 DICTATED BY: SHANNAN FRANK DATE: 06/08/16 REPORT STATUS : Draft TRANSCRIBED BY: MODL DATE: 06/08/16 Cardizem, Claritin, Ativan, nitroglycerin, Prilosec, Xarelto, Crestor, and Spiriva. REVIEW OF SYSTEMS: A 10-point review of systems has been obtained with pertinent positives being addressed in the history of present illness. PHYSICAL EXAMINATION: VITAL SIGNS: Temperature not recorded. Pulse 68, respirations 18, blood pressure and 117/56. NEUROLOGIC: Reveals an alert female, resting in bed. No focal deficits. GENERAL: Cooperative, in no apparent distress. Awake, alert and oriented x3. HEAD, EARS, EYES, NOSE, AND THROAT: Anicteric, but notable conjunctival pallor. Pupils are equal, round, and reactive to light and accommodation. Normocephalic and atraumatic. NECK: No JVD. No palpable nodes. Supple. LUNGS: Coarse and diminished throughout, normal respiratory effort exhibited. CARDIOVASCULAR SYSTEM: Irregular rate and rhythm. ABDOMEN: Soft, nontender, and nondistended with active bowel sounds. No organomegaly appreciated. No rebound or guarding elicited on exam. EXTREMITIES: No edema. Normal distal pulses. SKIN: Warm, dry, and intact. Notable for pallor. PERTINENT LABORATORY DATA: Sodium 142, potassium 3.4, BUN 23, and creatinine 0.82. White count 10.6, hemoglobin 6.6, hematocrit 20, and platelet count 265. Troponin is 0.04. ASSESSMENT: 1. Acute blood loss anemia/symptomatic. 2. Hemoccult-positive stools with reported melena, x3 to x4 days. 3. Exertional shortness of breath. 4. Exertional chest pain. 5. Recent diagnosis of lung adenocarcinoma. PLAN: 1. Clear liquid diet today. N.p.o. after midnight. 2. Transfuse to a stable hemoglobin. 3. PPI drip. 4. EGD in the morning, if negative then likely colonoscopy. We will follow. THU/CHINO SHANE Reid / [id number] Consultation Report [address] [place]. [address] NAME: ORIANA VEGA : 41 STATUS : ADM IN PAT#: [id number] AGE: 75 ADM/REG DATE : 06/07/16 MR#: [id number] REPORT SERV DATE: 06/08/16 DICTATED BY: SHANNAN FRANK DATE: 06/08/16 REPORT STATUS : Draft TRANSCRIBED BY: CHINO DATE: 06/08/16 CC: Yuko Kapadia M.D.
--- NOTE | ~2016-06-07 | CN ---
Consultation Report [facility] [address] [place]. [address] NAME: ORIANA VEGA : 41 STATUS : ADM IN [facility]#: [id number] AGE: 75 ADM/REG DATE : 06/07/16 MR#: [id number] REPORT SERV DATE: 06/08/16 DICTATED BY: MARIO THOMPSON DATE: 06/08/16 REPORT STATUS : Draft TRANSCRIBED BY: MODL DATE: 06/08/16 CONSULTATION DATE OF CONSULTATION: 06/08/2016 PRIMARY WORD PROCESSOR TECHNICIAN: Dr. Adolfo Bishop. REASON FOR CONSULTATION: Atypical chest pains, and anticoagulation management. HISTORY OF PRESENT ILLNESS: Ms Vega is a pleasant 75-year-old female with an extensive medical history including hypertension, hyperlipidemia, peripheral vascular disease, atrial fibrillation/atrial flutter on Xarelto (initiated just two to three weeks ago), COPD on home oxygen, nonobstructive CAD, and recently diagnosed right upper lobe lung cancer (stage T1a on recent PET scan), who presented to [facility] last night feeling generally out of it and weak. She states that she had been feeling suboptimal since she was discharged from the hospital last month, where she was managed for atrial flutter and started on Xarelto. She noticed dark black stools about one week ago that have continued through the week, and were accompanied with new symptoms of dizziness as well as atypical chest pressures (which she has had as well in the recent past), and generally feeling poor. This prompted her to present to [facility] for further evaluation and care. She had an enzymes drawn there which showed a troponin of 0.02. She was transferred here for GI bleed, given acute drop in her hemoglobin from the 14s down to the 7s and now the 6s. She has been transfused with 2 units of blood thus far; however, there are questions regarding her anticoagulation management. ALLERGIES: NONE. PAST MEDICAL HISTORY: As above. SOCIAL HISTORY: The patient lives at home with her and daughter. She functions in the partially dependent manner under normal circumstances. She denies drinking alcohol, doing drugs, or smoking. FAMILY HISTORY: Noncontributory for premature cardiovascular disease. HOME MEDICATIONS: 1. Albuterol. 2. Amiodarone. 3. Amlodipine. 4. Bisacodyl. 5. Cephalexin. 6. Plavix. 7. Diltiazem. 8. Loratadine. 9. Lorazepam. Consultation Report [place] [address]. [address] NAME: ORIANA VEGA : 41 STATUS : ADM IN PAT#: [id number] AGE: 75 ADM/REG DATE : 06/07/16 MR#: [id number] REPORT SERV DATE: 06/08/16 DICTATED BY: MARIO THOMPSON DATE: 06/08/16 REPORT STATUS : Draft TRANSCRIBED BY: CHINO DATE: 06/08/16 10.Nitroglycerin. 11.Omeprazole. 12.Rivaroxaban. 13.Rosuvastatin. 14.Tiotropium. PHYSICAL EXAMINATION: VITAL SIGNS: BP 100 to 110 over 50 to 60, pulse 71 sinus rhythm. Afebrile. GENERAL: Well-developed, well-nourished, no acute distress. NEURO: Awake, alert and oriented x3; no focal deficits, appropriate mood. HEENT: Moist mucous membranes, anicteric sclerae, no nasal discharge. NECK: No JVD, no carotid bruit. LUNGS: Clear to auscultation bilaterally, no wheezes, rales or rhonchi. CV: Regular rate and rhythm. Normal S1, S2. 3/6 systolic murmur throughout the precordium consistent with . ABD: Soft, non-tender, non-distended, no rebound or guarding. EXT: No pitting edema, normal distal pulses. SKIN: Warm, dry and intact; no rash. PERTINENT TEST FINDINGS: Troponin 0.02 and 0.04 here. Hemoglobin 6.6. Recent echocardiogram with normal biventricular function, EF of 60% and probable moderate aortic stenosis. EKG with sinus rhythm and no definitive ischemic ST/T changes. IMPRESSION AND PLAN: Ms Vega is a pleasant 75-year-old female with an extensive medical history as detailed above, who presents with atypical chest pains, as well as dark tarry black stools in the setting of significantly dropped hemoglobin with recently initiated Xarelto for atrial flutter last month. I agree with discontinuing her Xarelto completely, given intolerance to this medication as clearly documented by an active GI bleed at this point in time. In addition, holding Plavix for the time being will be fine. She has not had any intervention to her coronaries in the recent past, therefore if this medication needs to be hold for a prolonged period time that will be fine. She does have documented moderate aortic stenosis on a fairly recent echocardiogram from March, and this is consistent with her clinical. I do not believe that she has any signs concerning for acute coronary syndrome at this time, but rather of supply ischemia in the setting of significant anemia from her GI bleed. Therefore management for this will be integral in her resolution of symptoms. We will continue to follow along. REEMA/CHINO Mario Thompson MD / [id number] Consultation Report [address] [place]. [address] NAME: ORIANA VEGA : 41 STATUS : ADM IN [facility]#: [id number] AGE: 75 ADM/REG DATE : 06/07/16 MR#: [id number] REPORT SERV DATE: 06/08/16 DICTATED BY: MARIO THOMPSON DATE: 06/08/16 REPORT STATUS : Draft TRANSCRIBED BY: CHINO DATE: 06/08/16 CC: Yuko Kapadia M.D.
--- NOTE | ~2016-06-07 | EGD ---
EGD REPORT [facility] [address] [place]. [address] NAME: ORIANA MUÑOZ : 41 STATUS : ADM IN PAT#: [id number] AGE: 75 ADM/REG DATE : 06/07/16 MR#: [id number] REPORT SERV DATE: 06/11/16 DICTATED BY: GURWINDER GONSALEZ DATE: 06/11/16 REPORT STATUS : Draft TRANSCRIBED BY: [facility] DATE: 06/11/16 [facility] Patient Name: Oriana Muñoz Date of : 1940 Attending MD: GURWINDER GONSALEZ MD Procedure Date No Time: 06/11/2016 Procedure: Colonoscopy Indications: Melena Medicines: Monitored Anesthesia Care Complications: No immediate complications. Estimated blood loss: Minimal. Procedure: Pre-Anesthesia Assessment: - ASA Grade Assessment: III - A patient with severe systemic disease. After I obtained informed consent, the scope was passed under direct vision. Throughout the procedure, the patient's blood pressure, pulse, and oxygen saturations were monitored continuously. The CF [id number] was introduced through the anus and advanced to the cecum, identified by appendiceal orifice and ileocecal valve. The colonoscopy was performed without difficulty. The patient tolerated the procedure well. The quality of the bowel preparation was good. Findings: The perianal and digital rectal examinations were normal. Pertinent negatives include no palpable rectal lesions. One 12 mm nodule was found at the appendiceal orifice. Biopsies were taken with a cold forceps for histology. Estimated blood loss was minimal. A single medium-sized angiodysplastic lesion without bleeding was found in the cecum. Fulguration to ablate the lesion to prevent bleeding by argon plasma at 0.8 liters/minute and 15 noriega was successful. Estimated blood loss was minimal. Many small and large-mouthed diverticula were found in the entire colon. Two sessile polyps were found in the recto-sigmoid colon. The polyps were 3 to 4 mm in size. These polyps were removed with a cold biopsy forceps. Resection and retrieval were complete. Estimated blood loss was minimal. The exam was otherwise without abnormality on direct and retroflexion views. Impression: - Nodule at the appendiceal orifice. Biopsied. - A single non-bleeding colonic angiodysplastic lesion. Treated by fulguration. EGD REPORT [place] [id number] [facility] [place]. [address] NAME: ORIANA MUÑOZ : 41 STATUS : ADM IN [facility]#: [id number] AGE: 75 ADM/REG DATE : 06/07/16 MR#: [id number] REPORT SERV DATE: 06/11/16 DICTATED BY: GURWINDER GONSALEZ DATE: 06/11/16 REPORT STATUS : Draft TRANSCRIBED BY: [employer] DATE: 06/11/16 - Diverticulosis in the entire examined colon. - Two 3 to 4 mm polyps at the recto-sigmoid colon. Resected and retrieved. - The examination was otherwise normal on direct and retroflexion views. Recommendation: - Return patient to hospital gan for ongoing care. - Clear liquid diet today. - Await pathology results. Procedure Code(s): --- Professional --- 34326, 59, Colonoscopy, flexible, proximal to splenic flexure; with control of bleeding (eg, injection, bipolar cautery, unipolar cautery, laser, heater probe, stapler, plasma precision layout worker) 68739, Colonoscopy, flexible, proximal to splenic flexure; with biopsy, single or multiple Diagnosis Code(s): --- Professional --- K63.89, Other specified diseases of intestine K55.20, Angiodysplasia of colon without hemorrhage K57.30, Diverticulosis of large intestine without perforation or abscess without bleeding D12.7, Benign neoplasm of rectosigmoid junction K92.1, Melena CPT copyright 2013 [employer]. All rights reserved. The codes documented in this report are preliminary and upon buffet waiter/waitress review may be revised to meet current compliance requirements. Gurwinder Gonsalez MD GURWINDER GONSALEZ MD 06/11/2016 9:03 AM This report has been signed electronically. Number of Addenda: 0 Note Initiated On: 06/11/2016 8:08 AM Scope Withdrawal Time 0 hours 0 minutes 0 seconds [id number] [place] [id number]
[~2016-06-07 18:37] MED LIST changes: +BIST PO; +CARDIZEM LA180 MG PO; +CORDARONE PO; +CRESTOR40 MG PO; +XARELTO20 MG PO
[2016-06-07 23:47] LABS: BASOPHILS 0.2 %; BASOPHILS ABSOLUTE 0.02 10/3/uL (0.0-0.16); EOSINOPHILS 1.3 %; EOSINOPHILS ABSOLUTE 0.14 10/3/uL (0.0-0.53); IMMATURE GRANULOCYTES 0.2 %; IMMATURE GRANULOCYTES ABSOLUTE 0.02 10/3/uL (0.0-0.11); LYMPHOCYTES 26.4 %; MEAN CORPUSCULAR HEMOGLOB 29.6 pg (26.0-34.0); MEAN PLATELET VOLUME 9.3 fL (9.2-13.0); MONOCYTES 5.9 %; MONOCYTES ABSOLUTE 0.63 10/3/uL (0.21-1.20); NEUTROPHILS ABSOLUTE 7.01 10/3/uL (2.02-8.40); PLATELET COUNT 265 10/3/uL (150-400); WHITE BLOOD CELLS 10.6 10/3/uL (4.5-10.5)
[2016-06-07 23:50] LABS: HEMOGLOBIN 6.6 g/dL (12.0-16.0); MEAN CORPUSCULAR VOLUME 89.7 fL (80-100); RED CELL COUNT 2.23 10/6/uL (4.0-5.6)
[2016-06-07 23:52] LABS: MANUAL DIFF NO %
[2016-06-08 00:08] LABS: BUN (BLOOD UREA NITROGEN) 23 MG/DL (6-23); CALCIUM, SERUM 8.1 MG/DL (8.5-10.4); CHLORIDE, SERUM 109 MMOL/L (96-112); CO2 (CARBON DIOXIDE) 28 MMOL/L (24-34); CREATININE 0.82 MG/DL (0.55-1.02); GFR AFRICAN AMERICAN 82 ML/MIN (>=60); GFR NON AFRICAN AMERICAN 70 ML/MIN (>=60); GLUCOSE, SERUM 98 MG/DL (60-99); POTASSIUM, SERUM 3.4 MMOL/L (3.5-5.3); SODIUM, SERUM 142 MMOL/L (135-148); TROPONIN I 0.04 NG/ML (<0.05)
[2016-06-08 10:16] LABS: HEMATOCRIT 30.1 % (36.0-48.0); HEMOGLOBIN 10.2 g/dL (12.0-16.0)
[2016-06-08 12:08] LABS: HEMATOCRIT 30.8 % (36.0-48.0); HEMOGLOBIN 10.5 g/dL (12.0-16.0)
[2016-06-08 16:28] LABS: HEMATOCRIT 30.7 % (36.0-48.0); HEMOGLOBIN 10.3 g/dL (12.0-16.0)
[2016-06-08 21:52] LABS: HEMOGLOBIN 9.6 g/dL (12.0-16.0)
[2016-06-08 21:53] LABS: HEMATOCRIT 27.2 % (36.0-48.0)
[2016-06-09 04:31] LABS: INTERNATIONAL NORMAL RATI 1.2 UNITS (-); PROTIME (NOT ORD) 14.7 SEC (12.0-14.5)
[2016-06-09 04:39] LABS: CALCIUM, SERUM 8.2 MG/DL (8.5-10.4); CHLORIDE, SERUM 107 MMOL/L (96-112); CO2 (CARBON DIOXIDE) 28 MMOL/L (24-34); GFR AFRICAN AMERICAN 99 ML/MIN (>=60); GFR NON AFRICAN AMERICAN 85 ML/MIN (>=60); GLUCOSE, SERUM 90 MG/DL (60-99); SODIUM, SERUM 143 MMOL/L (135-148)
[2016-06-09 04:41] LABS: BUN (BLOOD UREA NITROGEN) 12 MG/DL (6-23); POTASSIUM, SERUM 2.8 MMOL/L (3.5-5.3)
[2016-06-09 04:44] LABS: BASOPHILS 0.5 %; BASOPHILS ABSOLUTE 0.05 10/3/uL (0.0-0.16); EOSINOPHILS ABSOLUTE 0.29 10/3/uL (0.0-0.53); HEMATOCRIT 27.4 % (36.0-48.0); HEMOGLOBIN 9.3 g/dL (12.0-16.0); IMMATURE GRANULOCYTES 0.4 %; IMMATURE GRANULOCYTES ABSOLUTE 0.04 10/3/uL (0.0-0.11); LYMPHOCYTES 24.7 %; LYMPHOCYTES ABSOLUTE 2.41 10/3/uL (0.67-4.30); MEAN CORPUS HGB CONC 33.9 g/dL (32.0-36.0); MEAN CORPUSCULAR HEMOGLOB 28.5 pg (26.0-34.0); MEAN PLATELET VOLUME 9.7 fL (9.2-13.0); MONOCYTES 7.2 %; NEUTROPHILS 64.2 %; NEUTROPHILS ABSOLUTE 6.25 10/3/uL (2.02-8.40); NUCLEATED RED BLOOD CELLS 0.2 /100WBC (0-0); PLATELET COUNT 240 10/3/uL (150-400); RBC DISTRIBUTION WIDTH 17.9 % (12.0-16.0); WHITE BLOOD CELLS 9.7 10/3/uL (4.5-10.5)
[2016-06-09 04:46] LABS: MANUAL DIFF NO %; RED CELL COUNT 3.26 10/6/uL (4.0-5.6)
[2016-06-09 07:01] LABS: CPK 31 U/L (0-200); TROPONIN I 0.03 NG/ML (<0.05)
[2016-06-09 12:05] LABS: HEMATOCRIT 28.3 % (36.0-48.0); HEMOGLOBIN 9.5 g/dL (12.0-16.0)
[2016-06-10 05:58] LABS: BASOPHILS 0.4 %; BASOPHILS ABSOLUTE 0.03 10/3/uL (0.0-0.16); EOSINOPHILS 4.5 %; EOSINOPHILS ABSOLUTE 0.36 10/3/uL (0.0-0.53); HEMATOCRIT 27.9 % (36.0-48.0); HEMOGLOBIN 9.4 g/dL (12.0-16.0); IMMATURE GRANULOCYTES 0.5 %; IMMATURE GRANULOCYTES ABSOLUTE 0.04 10/3/uL (0.0-0.11); LYMPHOCYTES 26.2 %; MANUAL DIFF NO %; MEAN CORPUS HGB CONC 33.7 g/dL (32.0-36.0); MEAN CORPUSCULAR HEMOGLOB 28.8 pg (26.0-34.0); MEAN CORPUSCULAR VOLUME 85.6 fL (80-100); MEAN PLATELET VOLUME 9.2 fL (9.2-13.0); MONOCYTES 6.4 %; MONOCYTES ABSOLUTE 0.51 10/3/uL (0.21-1.20); NEUTROPHILS ABSOLUTE 4.99 10/3/uL (2.02-8.40); PLATELET COUNT 258 10/3/uL (150-400); RED CELL COUNT 3.26 10/6/uL (4.0-5.6)
[2016-06-10 06:01] LABS: INTERNATIONAL NORMAL RATI 1.1 UNITS (-); PROTIME (NOT ORD) 14.2 SEC (12.0-14.5)
[2016-06-10 06:11] LABS: BUN (BLOOD UREA NITROGEN) 11 MG/DL (6-23); CALCIUM, SERUM 8.8 MG/DL (8.5-10.4); CHLORIDE, SERUM 111 MMOL/L (96-112); CO2 (CARBON DIOXIDE) 24 MMOL/L (24-34); CREATININE 0.77 MG/DL (0.55-1.02); GFR AFRICAN AMERICAN 88 ML/MIN (>=60); GFR NON AFRICAN AMERICAN 76 ML/MIN (>=60); GLUCOSE, SERUM 94 MG/DL (60-99); POTASSIUM, SERUM 3.6 MMOL/L (3.5-5.3); SODIUM, SERUM 143 MMOL/L (135-148); TROPONIN I 0.03 NG/ML (<0.05)
[2016-06-11 05:24] LABS: BASOPHILS 0.3 %; BASOPHILS ABSOLUTE 0.02 10/3/uL (0.0-0.16); EOSINOPHILS 3.9 %; EOSINOPHILS ABSOLUTE 0.31 10/3/uL (0.0-0.53); HEMATOCRIT 26.3 % (36.0-48.0); HEMOGLOBIN 8.9 g/dL (12.0-16.0); IMMATURE GRANULOCYTES 0.4 %; IMMATURE GRANULOCYTES ABSOLUTE 0.03 10/3/uL (0.0-0.11); LYMPHOCYTES 28.4 %; LYMPHOCYTES ABSOLUTE 2.23 10/3/uL (0.67-4.30); MEAN CORPUS HGB CONC 33.8 g/dL (32.0-36.0); MEAN CORPUSCULAR HEMOGLOB 28.5 pg (26.0-34.0); MEAN CORPUSCULAR VOLUME 84.3 fL (80-100); MEAN PLATELET VOLUME 9.1 fL (9.2-13.0); MONOCYTES ABSOLUTE 0.63 10/3/uL (0.21-1.20); NEUTROPHILS ABSOLUTE 4.64 10/3/uL (2.02-8.40); PLATELET COUNT 249 10/3/uL (150-400); RBC DISTRIBUTION WIDTH 17.9 % (12.0-16.0); RED CELL COUNT 3.12 10/6/uL (4.0-5.6); WHITE BLOOD CELLS 7.9 10/3/uL (4.5-10.5)
[2016-06-11 05:26] LABS: MANUAL DIFF NO %
[2016-06-11 05:28] LABS: CALCIUM, SERUM 8.5 MG/DL (8.5-10.4); CHLORIDE, SERUM 108 MMOL/L (96-112); CO2 (CARBON DIOXIDE) 27 MMOL/L (24-34); CREATININE 0.67 MG/DL (0.55-1.02); GFR AFRICAN AMERICAN 100 ML/MIN (>=60); GFR NON AFRICAN AMERICAN 87 ML/MIN (>=60); GLUCOSE, SERUM 83 MG/DL (60-99); POTASSIUM, SERUM 3.2 MMOL/L (3.5-5.3); SODIUM, SERUM 146 MMOL/L (135-148)
[2016-06-11 05:29] LABS: BUN (BLOOD UREA NITROGEN) 6 MG/DL (6-23)
[2016-06-12 06:22] LABS: BASOPHILS 0.4 %; BASOPHILS ABSOLUTE 0.03 10/3/uL (0.0-0.16); EOSINOPHILS 4.9 %; EOSINOPHILS ABSOLUTE 0.39 10/3/uL (0.0-0.53); IMMATURE GRANULOCYTES 0.1 %; IMMATURE GRANULOCYTES ABSOLUTE 0.01 10/3/uL (0.0-0.11); LYMPHOCYTES 20.8 %; LYMPHOCYTES ABSOLUTE 1.64 10/3/uL (0.67-4.30); MEAN CORPUS HGB CONC 33.2 g/dL (32.0-36.0); MEAN CORPUSCULAR HEMOGLOB 28.7 pg (26.0-34.0); MEAN CORPUSCULAR VOLUME 86.2 fL (80-100); MEAN PLATELET VOLUME 9.2 fL (9.2-13.0); MONOCYTES 7.1 %; MONOCYTES ABSOLUTE 0.56 10/3/uL (0.21-1.20); NEUTROPHILS 66.7 %; NEUTROPHILS ABSOLUTE 5.25 10/3/uL (2.02-8.40); PLATELET COUNT 275 10/3/uL (150-400); RED CELL COUNT 3.49 10/6/uL (4.0-5.6); WHITE BLOOD CELLS 7.9 10/3/uL (4.5-10.5)
[2016-06-12 06:23] LABS: HEMATOCRIT 30.1 % (36.0-48.0); MANUAL DIFF NO %
[2016-06-12 06:31] LABS: BUN (BLOOD UREA NITROGEN) 4 MG/DL (6-23); CALCIUM, SERUM 8.4 MG/DL (8.5-10.4); CHLORIDE, SERUM 105 MMOL/L (96-112); CO2 (CARBON DIOXIDE) 30 MMOL/L (24-34); CREATININE 0.89 MG/DL (0.55-1.02); GFR AFRICAN AMERICAN 74 ML/MIN (>=60); GFR NON AFRICAN AMERICAN 64 ML/MIN (>=60); GLUCOSE, SERUM 92 MG/DL (60-99); POTASSIUM, SERUM 3.1 MMOL/L (3.5-5.3); SODIUM, SERUM 141 MMOL/L (135-148)
[2016-06-13 05:45] LABS: BASOPHILS 0.4 %; BASOPHILS ABSOLUTE 0.03 10/3/uL (0.0-0.16); EOSINOPHILS 4.8 %; EOSINOPHILS ABSOLUTE 0.39 10/3/uL (0.0-0.53); HEMATOCRIT 28.2 % (36.0-48.0); HEMOGLOBIN 9.2 g/dL (12.0-16.0); IMMATURE GRANULOCYTES 0.2 %; IMMATURE GRANULOCYTES ABSOLUTE 0.02 10/3/uL (0.0-0.11); LYMPHOCYTES 20.8 %; LYMPHOCYTES ABSOLUTE 1.68 10/3/uL (0.67-4.30); MEAN CORPUS HGB CONC 32.6 g/dL (32.0-36.0); MEAN CORPUSCULAR HEMOGLOB 28.3 pg (26.0-34.0); MEAN CORPUSCULAR VOLUME 86.8 fL (80-100); MONOCYTES 7.1 %; MONOCYTES ABSOLUTE 0.57 10/3/uL (0.21-1.20); NEUTROPHILS 66.7 %; NEUTROPHILS ABSOLUTE 5.38 10/3/uL (2.02-8.40); PLATELET COUNT 266 10/3/uL (150-400); RBC DISTRIBUTION WIDTH 17.2 % (12.0-16.0); RED CELL COUNT 3.25 10/6/uL (4.0-5.6); WHITE BLOOD CELLS 8.1 10/3/uL (4.5-10.5)
[2016-06-13 05:46] LABS: MANUAL DIFF NO %
[2016-06-13 05:48] LABS: CALCIUM, SERUM 8.2 MG/DL (8.5-10.4); CHLORIDE, SERUM 109 MMOL/L (96-112); CO2 (CARBON DIOXIDE) 28 MMOL/L (24-34); CREATININE 0.98 MG/DL (0.55-1.02); GFR AFRICAN AMERICAN 66 ML/MIN (>=60); GFR NON AFRICAN AMERICAN 57 ML/MIN (>=60); GLUCOSE, SERUM 103 MG/DL (60-99); POTASSIUM, SERUM 3.7 MMOL/L (3.5-5.3); SODIUM, SERUM 143 MMOL/L (135-148)
[2016-06-13 05:50] LABS: BUN (BLOOD UREA NITROGEN) 13 MG/DL (6-23)
[2016-06-13] MEDS ORDERED: COREG6 PO (16:25)
[2016-06-13] MEDS ORDERED: K-TABS10 MEQ PO (16:26)
[2016-06-13] MEDS ORDERED: PCET PO (16:27)
== END 2016-06-13 17:23 | disposition home or self-care (01) | DRG 375 ==
LOC: IMCU 18:37 → 6NO 06-08 13:55
PROVIDERS: Internal Medicine; Nurse Practitioner Family; Student in an Organized Health Care Education/Training Program
PROC: 30233N1 Transfusion of Nonautologous Red Blood Cells into Peripheral Vein, Percutaneous Approach (ICD-10-PCS; principal; 2016-06-07)
PROC: 0D568ZZ Destruction of Stomach, Via Natural or Artificial Opening Endoscopic (ICD-10-PCS; 2016-06-10)
PROC: 0DBH8ZX Excision of Cecum, Via Natural or Artificial Opening Endoscopic, Diagnostic (ICD-10-PCS; 2016-06-11)
PROC: 0DBN8ZX Excision of Sigmoid Colon, Via Natural or Artificial Opening Endoscopic, Diagnostic (ICD-10-PCS; 2016-06-11)
DX: C18.1 Malignant neoplasm of appendix (principal); K92.2 Gastrointestinal hemorrhage, unspecified; J96.11 Chronic respiratory failure with hypoxia; I48.92 Unspecified atrial flutter; C34.11 Malignant neoplasm of upper lobe, right bronchus or lung; J44.9 Chronic obstructive pulmonary disease, unspecified; Z99.81 Dependence on supplemental oxygen; D62 Acute posthemorrhagic anemia; K31.819 Angiodysplasia of stomach and duodenum without bleeding; K44.9 Diaphragmatic hernia without obstruction or gangrene; E87.6 Hypokalemia; I48.91 Unspecified atrial fibrillation; F41.8 Other specified anxiety disorders; G47.00 Insomnia, unspecified; K57.30 Diverticulosis of large intestine without perforation or abscess without bleeding; K63.89 Other specified diseases of intestine; D12.7 Benign neoplasm of rectosigmoid junction; K55.20 Angiodysplasia of colon without hemorrhage; Z88.0 Allergy status to penicillin; Z95.5 Presence of coronary angioplasty implant and graft; Z88.2 Allergy status to sulfonamides; Z88.8 Allergy status to other drugs, medicaments and biological substances; Z87.891 Personal history of nicotine dependence; Z79.02 Long term (current) use of antithrombotics/antiplatelets; Z85.828 Personal history of other malignant neoplasm of skin
CPT/HCPCS: 36415; 80048; 82550; 83735; 84132; 84484; 85014; 85018; 85025; 85610; 86850; 86900; 86901; 86920; 87641; 88305; 88342; 93005; A9270-GY; C9113; J1610; P9016